=== PATIENT | male | born 2000 | race Caucasian/White ===

== ENCOUNTER 2018-11-12 14:58 | Emergency (ER) | payer SELFPAY ==
[2018-11-12] MEDS ORDERED: IPRATROPIUM/ALBUTEROL 3 ML VIAL NEB ONE ×2 (15:18→15:31)
[2018-11-12] MEDS ORDERED: SODIUM CHLORIDE 0.9% (FLUSH) 10 ML SYG IV PRN (15:19)
[2018-11-12] MEDS ORDERED: MAGNESIUM SULFATE PREMIX 2GM 2 GM in PREMIX BAG 1 BAG IVPB ONE (15:20)
[2018-11-12] MEDS ORDERED: methylPREDNISolone SODIUM SUC 125 MG/2 ML VIAL IV ONE (15:20)
[2018-11-12] MEDS ORDERED: MAGNESIUM SULFATE PREMIX 2GM 50 ML IVPB ONE (15:24)
--- NOTE | 2018-11-12 15:43 | ED.PDOC ---
History of Present Illness - General Chief Complaint: Respiratory Problem Stated Complaint: cough,shortness of breath Time Seen by Provider: 11/12/18 15:05 Source: patient Exam Limitations: no limitations - History of Present Illness Initial Comments: PT PRESENTS WITH COMPLAINT OF SOB X 1 DAY. PT REPORTS A HISTORY OF ASTHMA AND STATES HE HAD A BREATHING TREATMENT AT HOME WITHOUT RELIEF OF SYMPTOMS. PT DENIES FEVER, CHILLS, COUGH. Timing/Duration: 7-24 hours Severity: moderate Activities at Onset: none Possible Cause: chronic episodes Improving Factors: immobilization, medication Worsening Factors: movement Associated Symptoms: fever Allergies/Adverse Reactions: Allergies NO KNOWN ALLERGY Allergy (Verified 03/12/13 09:14) Home Medications: Ambulatory Orders Albuterol Sulfate 1 amp INH Q4H PRN 12/04/12 Fluticasone/Salmeterol 100/50 [Advair 100/50 Diskus] 1 puff INH BID 12/04/12 Levalbuterol Inhaler [Xopenex Hfa 45 Mcg] 1 puff INH PRN PRN 12/04/12 Montelukast Sodium [Singulair] 5 mg PO DAILY 12/04/12 Cefdinir [Omnicef] 300 mg PO BID #0 cap 12/06/12 predniSONE 40 mg PO DAILY #0 tab 12/06/12 Past Medical History (General) - Patient Medical History Hx Seizures: No Hx Stroke: No Hx Asthma: Yes Hx of COPD: No Hx Cardiac Disorders: No Hx Congestive Heart Failure: No Hx Pacemaker: No Hx Hypertension: No Hx Diabetes: No Hx MRSA: No Surgical History: no surgical history - Vaccination History Hx Tetanus, Diphtheria Vaccination: No Hx Influenza Vaccination: No - Social History Hx Tobacco Use: No Hx Alcohol Use: No Hx Substance Use: No Hx Physical Abuse: No Hx Emotional Abuse: No Family Medical History - Family History Mother Living Status: Still Living Progress - Progress Progress: 11/12/18 16:42 PT CONTINUES TO HAVE WHEEZING WITH SPO2 OF 92-93 WHILE ON CONTINUOUS NEB AFTER RECIEVING DUONEB X 2 IV SOLU MEDROL, IV MAG SULFATE. DECISION MADE TO TRANSFER PATIENT TO A HIGHER LEVEL FACILITY BASED ON ACUITY OF DISEASE AND LACK OF ICU CARE AT THIS FACILITY. - Results/Orders Results/Orders: Laboratory Tests 11/12/18 11/12/18 15:34 15:34 WBC 9.5 RBC 5.40 Hgb 16.5 Hct 50.2 MCV 93.0 MCH 30.6 MCHC 32.9 L RDW 13.3 Plt Count 245 MPV 9.1 Absolute Neuts (auto) 6.30 Absolute Lymphs (auto) 1.70 Absolute Monos (auto) 0.70 Absolute Eos (auto) 0.70 H Absolute Basos (auto) 0.10 Neutrophils % 66.8 Lymphocytes % 17.4 L Monocytes % 7.7 Eosinophils % 7.1 H Basophils % 1.0 Sodium 139 Potassium 3.3 L Chloride 104 Carbon Dioxide 25 Anion Gap 13.3 BUN 6 L Creatinine 0.89 BUN/Creatinine Ratio 6.7 L Random Glucose 93 Serum Osmolality 274.8 L Calcium 9.4 Total Bilirubin 1.0 AST 21 ALT 21 Alkaline Phosphatase 100 Serum Total Protein 8.6 H Albumin 4.4 Globulin 4.2 H Albumin/Globulin Ratio 1.0 L - EKG/XRAY/CT XRAY: chest - NO ACTIVE DISEASE, PER RAD Departure - Departure Clinical Impression: Hypoxemia, Asthma with status asthmaticus Time of Disposition: 16:46 Disposition: Transfer to Hospital Condition: Fair Departure Forms: ED Discharge - Pt. Copy, Patient Portal Self Enrollment Home Medications: Ambulatory Orders Albuterol Sulfate 1 amp INH Q4H PRN 12/04/12 Fluticasone/Salmeterol 100/50 [Advair 100/50 Diskus] 1 puff INH BID 12/04/12 Levalbuterol Inhaler [Xopenex Hfa 45 Mcg] 1 puff INH PRN PRN 12/04/12 Montelukast Sodium [Singulair] 5 mg PO DAILY 12/04/12 Cefdinir [Omnicef] 300 mg PO BID #0 cap 12/06/12 predniSONE 40 mg PO DAILY #0 tab 12/06/12 Critical Care Note - Critical Care Note Total Time (mins): 48 Transfer to Outside Facility - Transfer Information Accepting Provider:: DR. OLMSTEAD Accepting Facility: [facility] Reason for Transfer: specialized care not available
[2018-11-12] MEDS ORDERED: SODIUM CHL 0.9% 50ML VIAL 3 ML, ALBUTEROL SULFATE NEBS 15 MG NEB ONE ×2 (15:46)
[2018-11-12] MEDS ORDERED: ALBUTEROL SULFATE 2.5 MG/3 ML VIAL NEB ONE (15:48)
[2018-11-12] MEDS ORDERED: SODIUM CHLORIDE 0.9% 50 ML VIAL ONE (15:48)
--- NOTE | 2018-11-12 16:04 | RAD ---
EXAM DESCRIPTION: Chest,1 View CLINICAL HISTORY: SOB, HYPOXIA COMPARISON: March 11, 2013 FINDINGS: Cardiac silhouette is within normal limits. There is no focal parenchymal or pleural disease. There is no acute osseous process visualized. IMPRESSION: No evidence of acute cardiopulmonary disease. Electronically signed by: Taran Cruz MD 11/12/2018 4:03 PM [facility]
[2018-11-12 16:07] VITALS: O2SAT 92
[2018-11-12 17:22] VITALS: BP 123/68; TEMP 97.4
== END 2018-11-12 17:22 | disposition short-term general hospital (02) ==
LOC: ER 14:58
DX: J45.902 Unspecified asthma with status asthmaticus (principal); R09.02 Hypoxemia; Z79.899 Other long term (current) drug therapy
CPT/HCPCS: 36415; 36600; 71045; 80053; 82803; 82805; 85025; 94640; 94644; 94760; A4216; J2930; J3475; J7611; J7620

== ENCOUNTER → 2019-08-21 | Emergency (ER) | payer SELFPAY | END | disposition left against medical advice (07) | LOC: ER 18:28 | DX: R05 Cough (principal); Z53.21 Procedure and treatment not carried out due to patient leaving prior to being seen by health care provider ==

== ENCOUNTER 2019-08-22 10:32 | Emergency (ER) | payer SELFPAY ==
[2019-08-22] MEDS ORDERED: predniSONE 20 MG TAB PO ONE (10:44)
[2019-08-22] MEDS ORDERED: IPRATROPIUM/ALBUTEROL 3 ML VIAL NEB ONE (10:44)
[2019-08-22] MEDS ORDERED: MONTELUKAST 10 MG TAB PO ONE (10:44)
[2019-08-22 10:45] VITALS: TEMP 96.7
--- NOTE | 2019-08-22 10:47 | ED.PDOC ---
History of Present Illness - General Chief Complaint: Respiratory Problem Stated Complaint: ran out of asthma medications Time Seen by Provider: 08/22/19 10:41 Source: patient Exam Limitations: no limitations - History of Present Illness Initial Comments: the patient is a 19-year-old male presenting to emergency room secondary to running out of his asthma medications. His oxygen levels are somewhat low down around 88% on room air. no fever. He ran out of his Xopenex and Advair. He has been flaring for the last several days. No fever or sore throat. Timing/Duration: unsure Severity: moderate Improving Factors: medication Worsening Factors: nothing Associated Symptoms: shortness of breath Allergies/Adverse Reactions: Allergies NO KNOWN ALLERGY Allergy (Verified 03/12/13 09:14) Home Medications: Ambulatory Orders Albuterol Sulfate 1 amp INH Q4H PRN 12/04/12 Fluticasone/Salmeterol 100/50 [Advair 100/50 Diskus] 1 puff INH BID 12/04/12 Levalbuterol Inhaler [Xopenex Hfa 45 Mcg] 1 puff INH PRN PRN 12/04/12 Montelukast Sodium [Singulair] 5 mg PO DAILY 12/04/12 Cefdinir [Omnicef] 300 mg PO BID #0 cap 12/06/12 predniSONE 40 mg PO DAILY #0 tab 12/06/12 Fluticasone/Salmeterol 250/50 [Advair Diskus] 1 puff INH BID #1 inh 08/22/19 Ipratropium/Albuterol [Duoneb] 3 ml INH Q4HR PRN #50 vial 08/22/19 Montelukast [Singulair] 10 mg PO DAILY #30 tab 08/22/19 predniSONE [Prednisone] 20 mg PO DAILY #3 tab 08/22/19 Review of Systems - Review of Systems Constitutional: States: no symptoms reported EENTM: States: no symptoms reported Respiratory: States: see HPI Cardiology: States: no symptoms reported Gastrointestinal/Abdominal: States: no symptoms reported Genitourinary: States: no symptoms reported Musculoskeletal: States: no symptoms reported Skin: States: no symptoms reported Neurological: States: no symptoms reported Endocrine: States: no symptoms reported All other Systems: No Change from Baseline Past Medical History (General) - Patient Medical History Hx Seizures: No Hx Stroke: No Hx Asthma: Yes Hx of COPD: No Hx Cardiac Disorders: No Hx Congestive Heart Failure: No Hx Pacemaker: No Hx Hypertension: No Hx Diabetes: No Hx MRSA: No Surgical History: no surgical history - Vaccination History Hx Tetanus, Diphtheria Vaccination: No Hx Influenza Vaccination: No - Social History Hx Tobacco Use: No Hx Alcohol Use: No Hx Substance Use: No Hx Physical Abuse: No Hx Emotional Abuse: No Family Medical History - Family History Mother Living Status: Still Living Physical Exam - Physical Exam General Appearance: Alert, Comfortable, No apparent distress Eye Exam: bilateral normal Ears, Nose, Throat: hearing grossly normal, normal ENT inspection Neck: full range of motion, supple Respiratory: decreased breath sounds, accessory muscle use, wheezing Cardiovascular/Chest: normal peripheral pulses, regular rate, rhythm, no edema Peripheral Pulses: radial,right: 2+, radial,left: 2+ Gastrointestinal/Abdominal: non tender, soft Rectal Exam: deferred Back Exam: no CVA tenderness, no vertebral tenderness Extremity: normal range of motion, non-tender, normal inspection, no pedal edema, normal capillary refill Neurologic: varying exceptionalities teacher II-XII nml as tested, alert, normal mood/affect, oriented x 3 Skin Exam: normal color Comments: Vital Signs - 24 hr 08/22/19 10:42 Temperature 96.7 F L Pulse Rate [ 88 Left Brachial] Respiratory 20 Rate Blood Pressure 114/70 [Left Arm] O2 Sat by Pulse 99 Oximetry Progress - Progress Progress: 08/22/19 10:47 the patient is a 19-year-old male presents to emergency room with asthma exacerbation. He received 2 breathing treatments here along with the dose of p rednisone and Singulair. He is going to be written for DuoNeb's for his nebulizer machine. He'll also be written for Singulair to take daily. He is going to be written for prednisone for the next 3 days. He'll also be written for an Advair inhaler as he has used this before. ER warnings were given for any significant worsening. Follow up with primary care doctor next week. [id number] [id number] Departure - Departure Clinical Impression: Asthma with exacerbation Qualifiers: Asthma severity: moderate Asthma persistence: persistent Qualified Code(s): J45.41 - Moderate persistent asthma with (acute) exacerbation Disposition: Discharge to Home or Self Care Condition: Fair Departure Forms: ED Discharge - Pt. Copy, Patient Portal Self Enrollment Instructions: DI for Asthma -- Adult Diet: regular diet Activity: increase activity as tolerated Prescriptions: Ipratropium/Albuterol [Duoneb] 3 ml INH Q4HR PRN #50 vial PRN Reason: Shortness Of Breath Fluticasone/Salmeterol 250/50 [Advair Diskus] 1 puff INH BID #1 inh Montelukast [Singulair] 10 mg PO DAILY #30 tab predniSONE [Prednisone] 20 mg PO DAILY #3 tab Home Medications: Ambulatory Orders Albuterol Sulfate 1 amp INH Q4H PRN 12/04/12 Fluticasone/Salmeterol 100/50 [Advair 100/50 Diskus] 1 puff INH BID 12/04/12 Levalbuterol Inhaler [Xopenex Hfa 45 Mcg] 1 puff INH PRN PRN 12/04/12 Montelukast Sodium [Singulair] 5 mg PO DAILY 12/04/12 Cefdinir [Omnicef] 300 mg PO BID #0 cap 12/06/12 predniSONE 40 mg PO DAILY #0 tab 12/06/12 Fluticasone/Salmeterol 250/50 [Advair Diskus] 1 puff INH BID #1 inh 08/22/19 Ipratropium/Albuterol [Duoneb] 3 ml INH Q4HR PRN #50 vial 08/22/19 Montelukast [Singulair] 10 mg PO DAILY #30 tab 08/22/19 predniSONE [Prednisone] 20 mg PO DAILY #3 tab 08/22/19 Additional Instructions: the patient is a 19-year-old male presents to emergency room with asthma exacerbation. He received 2 breathing treatments here along with the dose of prednisone and Singulair. He is going to be written for DuoNeb's for his nebulizer machine. He'll also be written for Singulair to take daily. He is going to be written for prednisone for the next 3 days. He'll also be written for an Advair inhaler as he has used this before. ER warnings were given for any significant worsening. Follow up with primary care doctor next week.
[2019-08-22 11:34] VITALS: O2SAT 98
[2019-08-22 11:42] VITALS: BP 131/72
== END 2019-08-22 11:35 | disposition home or self-care (01) ==
LOC: ER 10:32
DX: J45.41 Moderate persistent asthma with (acute) exacerbation (principal); Z79.899 Other long term (current) drug therapy
CPT/HCPCS: 94640; J7512; J7620

== ENCOUNTER 2019-08-31 23:29 | Emergency (ER) | payer SELFPAY ==
[2019-08-31] MEDS ORDERED: ALBUTEROL SULFATE 2.5 MG/3 ML VIAL NEB ONE ×3 (23:40→23:58)
[2019-08-31] MEDS ORDERED: methylPREDNISolone SODIUM SUC 125 MG/2 ML VIAL ONE (23:50)
[2019-08-31] MEDS ORDERED: methylPREDNISolone SODIUM SUC 125 MG/2 ML VIAL IV ONE (23:57)
--- NOTE | 2019-08-31 23:58 | ED.PDOC ---
History of Present Illness - General Chief Complaint: Respiratory Problem Stated Complaint: hard to breathe, need inhaler Time Seen by Provider: 08/31/19 23:46 - History of Present Illness Initial Comments: this is a 19-year-old young man who presents to the emergency department with complaints of shortness of breath. He states that he ran out of his inhaler today and had an abrupt onset of shortness of breath this evening. He denies any recent cough or congestion. He states that he was here approximately one week ago and received all of his prescriptions but was I'm unable to get them due to financial difficulties. He denies any fever or chills or recent cough or congestion. He denies smoking as well. Allergies/Adverse Reactions: Allergies NO KNOWN ALLERGY Allergy (Verified 08/31/19 23:34) Home Medications: Ambulatory Orders Albuterol Sulfate 1 amp INH Q4H PRN 12/04/12 Fluticasone/Salmeterol 100/50 [Advair 100/50 Diskus] 1 puff INH BID 12/04/12 Levalbuterol Inhaler [Xopenex Hfa 45 Mcg] 1 puff INH PRN PRN 12/04/12 Montelukast Sodium [Singulair] 5 mg PO DAILY 12/04/12 Cefdinir [Omnicef] 300 mg PO BID #0 cap 12/06/12 predniSONE 40 mg PO DAILY #0 tab 12/06/12 Fluticasone/Salmeterol 250/50 [Advair Diskus] 1 puff INH BID #1 inh 08/22/19 Ipratropium/Albuterol [Duoneb] 3 ml INH Q4HR PRN #50 vial 08/22/19 Montelukast [Singulair] 10 mg PO DAILY #30 tab 08/22/19 predniSONE [Prednisone] 20 mg PO DAILY #3 tab 08/22/19 Albuterol Sulfate [Albuterol Sulfate Hfa] 108 mcg INH Q4HR #1 aer 09/01/19 predniSONE 40 mg PO Q24HR #10 tab 09/01/19 Review of Systems - Review of Systems Constitutional: States: no symptoms reported EENTM: States: no symptoms reported Respiratory: States: short of breath, wheezing Cardiology: States: no symptoms reported Gastrointestinal/Abdominal: States: no symptoms reported Musculoskeletal: States: no symptoms reported Skin: States: no symptoms reported Neurological: States: no symptoms reported Endocrine: States: no symptoms reported Hematologic/Lymphatic: States: no symptoms reported All other Systems: Reviewed and Negative Past Medical History (General) - Patient Medical History Hx Seizures: No Hx Stroke: No Hx Dementia: No Hx Asthma: Yes Hx of COPD: No Hx Cardiac Disorders: No Hx Congestive Heart Failure: No Hx Pacemaker: No Hx Hypertension: No Hx Thyroid Disease: No Hx Diabetes: No Hx Gastroesophageal Reflux: No Hx Renal Disease: No Hx Cancer: No Hx of HIV: No Hx Hepatitis C: No Hx MRSA: No Surgical History: other - Vaccination History Hx Tetanus, Diphtheria Vaccination: Yes Hx Influenza Vaccination: No Hx Pneumococcal Vaccination: No Immunizations Up to Date: Yes - Social History Hx Tobacco Use: No Hx Chewing Tobacco Use: No Hx Alcohol Use: No Hx Substance Use: No Hx Substance Use Treatment: No Hx Depression: No Feels Threatened In Home Enviroment: No Feels Threatened In a Relationship: No Hx Physical Abuse: No Hx Emotional Abuse: No Hx Suspected Abuse: No - Activities of Daily Living Hospice Agency (if applicable):: None - Female History Patient is a Female of Child Bearing Age (10 -59 yrs old): No - Triage Comment ED Triage Comment: pt states he is out of inhaler medication, and does not have PCP, Family Medical History - Family History Mother Living Status: Still Living Physical Exam - Physical Exam General Appearance: Alert, Other - mild distress is noted secondary to shortness of breath Eyes, Ears, Nose, Throat Exam: PERRL/EOMI, normal ENT inspection, TMs normal, pharynx normal Neck: non-tender, full range of motion, supple Respiratory: respiratory distress, decreased breath sounds, accessory muscle use, wheezing, other - worse and expiration. Cardiovascular/Chest: normal peripheral pulses, regular rate, rhythm, no edema, no gallop, no JVD, no murmur Peripheral Pulses: radial,right: 2+, radial,left: 2+ Gastrointestinal/Abdominal: normal bowel sounds, non tender, soft Rectal Exam: deferred Extremity: normal range of motion, no pedal edema Neurologic: no motor/sensory deficits, alert, normal mood/affect, oriented x 3 Skin Exam: normal color, warm/dry Lymphatic: no adenopathy Progress - Progress Progress: 09/01/19 00:00 MDM: Patient is a 19-year-old gentleman who has significant asthmatic symptoms and is on multiple medications. He is unable to afford them currently. He has run out of his rescue inhaler. Seen 1 week ago for similar issues. Comes in now with a 91% O2 sat needing bronchodilators and steroids. No evidence of pneumonia, fever, chills or other systemic symptoms. 09/01/19 00:20 after 2 nebulized treatments and IV steroids patient is doing much better as O2 saturations are 95% on room air now..We discussed Good Rx card and gave him one as well. We will give him albuterol which would be cheaper than DuoNeb. Will go ahead and keep him on prednisone for a few more days. He did not take it last time. He works in [employer] and does wear a mask whenever he moves. This is obviously hard on his asthma. Departure - Departure Clinical Impression: Acute asthma Asthma with exacerbation Qualifiers: Asthma severity: moderate Asthma persistence: persistent Qualified Code(s): J45.41 - Moderate persistent asthma with (acute) exacerbation Time of Disposition: 00:23 Disposition: Discharge to Home or Self Care Condition: Good Departure Forms: ED Discharge - Pt. Copy, Patient Portal Self Enrollment Instructions: DI for Asthma -- Adult Referrals: GAMAL DIAS MD REF [Referring] - 1-2 Weeks Prescriptions: Albuterol Sulfate [Albuterol Sulfate Hfa] 108 mcg INH Q4HR #1 aer predniSONE 40 mg PO Q24HR #10 tab Home Medications: Ambulatory Orders Albuterol Sulfate 1 amp INH Q4H PRN 12/04/12 Fluticasone/Salmeterol 100/50 [Advair 100/50 Diskus] 1 puff INH BID 12/04/12 Levalbuterol Inhaler [Xopenex Hfa 45 Mcg] 1 puff INH PRN PRN 12/04/12 Montelukast Sodium [Singulair] 5 mg PO DAILY 12/04/12 Cefdinir [Omnicef] 300 mg PO BID #0 cap 12/06/12 predniSONE 40 mg PO DAILY #0 tab 12/06/12 Fluticasone/Salmeterol 250/50 [Advair Diskus] 1 puff INH BID #1 inh 08/22/19 Ipratropium/Albuterol [Duoneb] 3 ml INH Q4HR PRN #50 vial 08/22/19 Montelukast [Singulair] 10 mg PO DAILY #30 tab 08/22/19 predniSONE [Prednisone] 20 mg PO DAILY #3 tab 08/22/19 Albuterol Sulfate [Albuterol Sulfate Hfa] 108 mcg INH Q4HR #1 aer 09/01/19 predniSONE 40 mg PO Q24HR #10 tab 09/01/19 Additional Instructions: obtain medications as prescribed and improve compliance. Recommend mowing with a mask. Follow-up with PCP at regular visits to avoid exacerbations. Return to ED if needed.
[2019-09-01] MEDS ORDERED: ALBUTEROL SULFATE 2.5 MG/3 ML VIAL NEB ONE (00:54)
[2019-09-01 01:55] VITALS: BP 122/89; TEMP 98.3; O2SAT 93
== END 2019-09-01 01:45 | disposition home or self-care (01) ==
LOC: ER 23:29
DX: J45.41 Moderate persistent asthma with (acute) exacerbation (principal); Z79.899 Other long term (current) drug therapy
CPT/HCPCS: 94640; J2930; J7611

== ENCOUNTER 2019-09-13 09:26 | Inpatient (IN) | payer OTHER ==
[2019-09-13] MEDS: IPRATROPIUM/ALBUTEROL 3 ML VIAL NEB ONE ×2 (09:37→10:00)
[2019-09-13] MEDS ORDERED: MAGNESIUM SULFATE PREMIX 2GM 2 GM in PREMIX BAG 1 BAG IVPB ONE (09:38)
[2019-09-13] MEDS ORDERED: MAGNESIUM SULFATE PREMIX 2GM 50 ML IVPB ONE (09:48)
--- NOTE | 2019-09-13 09:55 | ED.PDOC ---
History of Present Illness - General Chief Complaint: Respiratory Problem Stated Complaint: Wheezing, difficulty breathing Time Seen by Provider: 09/13/19 09:29 Source: patient - History of Present Illness Initial Comments: 19 y/o Male presents to the emergency department via EMS complaining of shortness of breath and wheezing onset 1 day ago. On EMS arrival the patient's room air oxygen saturations were 89% and he was given a DuoNeb treatment, IV Solu-Medrol and subcutaneous terbutaline. The patient has a history of asthma and had recently been on steroids which he finished yesterday. Since he finished the steroids he has noticed increased work of breathing and wheezing, he has tried his home DuoNebs, albuterol and inhaled steroids without significant improvement in his symptoms. He denies any cough, congestion or fever. Symptoms are currently moderate in severity and it progressively worsened over time. Patient reports that he has been admitted for his asthma in the past but has never been in the ICU and is never required intubation. Allergies/Adverse Reactions: Allergies NO KNOWN ALLERGY Allergy (Verified 08/31/19 23:34) Home Medications: Ambulatory Orders Fluticasone/Salmeterol 250/50 [Advair Diskus] 1 puff INH BID #1 inh 08/22/19 Montelukast [Singulair] 10 mg PO DAILY #30 tab 08/22/19 Albuterol Sulfate [Albuterol Sulfate Hfa] 1 dose NEB Q4H PRN 09/13/19 Review of Systems - Review of Systems Constitutional: Denies: chills, fever EENTM: Denies: nose congestion, throat pain, throat swelling Respiratory: States: short of breath, wheezing. Denies: cough Cardiology: Denies: chest pain, palpitations Gastrointestinal/Abdominal: Denies: abdominal pain, nausea, vomiting Genitourinary: Denies: dysuria, hematuria Skin: Denies: lesions, rash Neurological: Denies: headache, numbness, weakness Past Medical History (General) - Patient Medical History Hx Seizures: No Hx Stroke: No Hx Dementia: No Hx Asthma: Yes Hx of COPD: No Hx Cardiac Disorders: No Hx Congestive Heart Failure: No Hx Pacemaker: No Hx Hypertension: No Hx Thyroid Disease: No Hx Diabetes: No Hx Gastroesophageal Reflux: No Hx Renal Disease: No Hx Cancer: No Hx of HIV: No Hx Hepatitis C: No Hx MRSA: No Surgical History: no surgical history - Vaccination History Hx Tetanus, Diphtheria Vaccination: Yes Hx Influenza Vaccination: No Hx Pneumococcal Vaccination: No - Social History Hx Tobacco Use: No Hx Chewing Tobacco Use: No Hx Alcohol Use: No Hx Substance Use: No Hx Substance Use Treatment: No Hx Depression: No Hx Physical Abuse: No Hx Emotional Abuse: No Hx Suspected Abuse: No Family Medical History - Family History Mother Living Status: Still Living Physical Exam - Physical Exam General Appearance: Obvious distress, Well Developed, Well Nourished Eyes, Ears, Nose, Throat Exam: PERRL/EOMI, pharynx normal Neck: full range of motion, supple, normal inspection Respiratory: respiratory distress, accessory muscle use, wheezing - diffuse inspiratory and expiratory Cardiovascular/Chest: normal peripheral pulses, no murmur, tachycardia Peripheral Pulses: radial,right: 2+, radial,left: 2+, posterior tibialis,right: 2+, posterior tibialis,left: 2+ Gastrointestinal/Abdominal: normal bowel sounds, non tender, soft Extremity: normal range of motion, normal inspection Neurologic: customer engagement representative II-XII nml as tested, alert, normal mood/affect, oriented x 3, other - moves all extremities without focal deficits Progress - Progress Progress: 09/13/19 09:20 AM On arrival from EMS patient is tachypneic with accessory muscle usage and diffuse inspiratory and expiratory wheezes with room air oxygen saturation 90- 91%. He was given a DuoNeb treatments, IV Solu-Medrol 125 and 0.125 of subcutaneous terbutaline by EMS prior to arrival. A hour-long DuoNeb breathing treatment and 2 g of IV magnesium was ordered along with laboratory data and an ABG. 09/13/19 09:45 Old record review: Patient was seen on 08/22/19 for asthma exacerbation his room air saturation was 88% at that time. He improved in the department and was discharged home with a prescription for DuoNeb, Singulair and prednisone. Patient was seen on 08/31/19 for shortness of breath and asthma exacerbation at that time his room air saturations were 91% on arrival. He did not fill his prescriptions from his previous visit due to funding issues. He improved after 2 neb treatments in the emergency department and was discharged home with a prescription for albuterol nebulizer as well as inhaler and another prescription for steroids. He was given a good Rx card to help pay for his prescriptions. 09/13/19 10:30 Patient is breathing significantly better. Respiratory effort is significantly improved although still wheezing on neb treatment. I discussed with the patient lab results and recommended plan for admission for continued frequent breathing treatments and steroids as well as close observation. The patient has voiced understanding and agrees with the plan. 09/13/19 10:47 Spoke with Jennyfer Michelle with the hospitalist service, discussed lab, imaging results and exam findings. Agrees with plan for admission. - Results/Orders Results/Orders: 09/13/19 09:38 Magnesium Sulfate Premix 2Gm 2 gm Premix Bag 1 bag IVPB ONCE 09/13/19 09:40 ABG [Arterial Blood Gas] Stat 09/13/19 09:42 IV Care:Saline Lock per Protoc QSHIFT Telemetry PRN 09/13/19 09:43 Oxygen Delivery Assessment: QSHIFT Pulse Oximetry Assessment DAILY 09/13/19 10:13 BOLUS Sodium Chloride 0.9% 1000ML [Ns 1000 ml] 1,000 ml IVS ONCE 09/14/19 09:00 Oxygen Daily Pulse Ox Daily Laboratory Results - last 24 hr 09/13/19 09/13/19 09/13/19 09:11 09:11 09:11 WBC 13.8 H RBC 5.54 Hgb 17.4 Hct 52.7 H MCV 95.2 H MCH 31.4 H MCHC 33.0 RDW 13.4 Plt Count 296 MPV 9.4 Absolute Neuts (auto) 9.30 H Absolute Lymphs (auto) 2.40 Absolute Monos (auto) 1.20 H Absolute Eos (auto) 0.80 H Absolute Basos (auto) 0.10 Neutrophils % 67.5 Lymphocytes % 17.4 L Monocytes % 8.5 Eosinophils % 5.8 H Basophils % 0.8 D-Dimer, Quantitative 0.25 Sodium 140 Potassium 3.7 Chloride 101 Carbon Dioxide 25 Anion Gap 17.7 BUN 17 Creatinine 0.93 BUN/Creatinine Ratio 18.3 Random Glucose 100 Serum Osmolality 281.0 Calcium 9.8 Total Bilirubin 1.8 H AST 25 ALT 24 Alkaline Phosphatase 80 Serum Total Protein 8.9 H Albumin 4.7 Globulin 4.2 H Albumin/Globulin Ratio 1.1 ABG interpretation: Findings consistent with hypoxia with PO2 of 58 and O2 saturation is 91% on RA. PH is normal. PCO2 is normal at 41. Bicarbonate is 24.5. CXR per my read: Hyperinflation without acute cardiopulmonary process. No significant change from previous on 11/12/18. Departure - Departure Clinical Impression: Hypoxia Asthma with acute exacerbation Qualifiers: Asthma severity: moderate Asthma persistence: persistent Qualified Code(s): J45.41 - Moderate persistent asthma with (acute) exacerbation Time of Disposition: 10:50 Condition: Fair Home Medications: Ambulatory Orders Fluticasone/Salmeterol 250/50 [Advair Diskus] 1 puff INH BID #1 inh 08/22/19 Montelukast [Singulair] 10 mg PO DAILY #30 tab 08/22/19 Albuterol Sulfate [Albuterol Sulfate Hfa] 1 dose NEB Q4H PRN 09/13/19 Comments: Elda Alcaraz DO Emergency Medicine MediSer#[id number] Decision To Admit - Decistion To Admit Decision to Admit Reason: Admit from ER Decision to Admit Date: 09/13/19 Decision to Admit Time: 10:30
[2019-09-13] MEDS ORDERED: SODIUM CHLORIDE 0.9% 1000ML 1,000 ML IVS ONE (10:13)
--- NOTE | 2019-09-13 10:55 | RAD ---
EXAM DESCRIPTION: Chest,1 View x-ray CLINICAL HISTORY: 19 years Male, SOB COMPARISON: Previous study November 12, 2018 TECHNIQUE: AP portable chest. FINDINGS: Heart size is normal with normal pulmonary vascularity. No consolidating infiltrate. Lungs appear hyperexpanded. No pulmonary mass or worrisome nodule. No pneumothorax or pleural effusion. Bones are unremarkable. IMPRESSION: No consolidating infiltrate. Electronically signed by: Robin Flores MD 09/13/2019 10:54 AM [facility]
--- NOTE | 2019-09-13 11:20 | HP ---
SUPERVISING PHYSICIAN: Van Mcdonough M.D. CHIEF COMPLAINT: Shortness of breath and wheezing. HISTORY OF PRESENT ILLNESS: This is a 19 year-old male patient who came to the Emergency Room via EMS complaining of shortness of breath and wheezing that has been going on for about 2 weeks, but his symptoms worsened last night to the point that he was so short of breath he "felt I was going to ." In the Emergency Room, his oxygen saturations were in the upper 80s and he was tachypneic. He had been in the Emergency Room 2 to 3 times over the last week and a half with the same symptoms, although last night his symptoms were actually much worse than previously. In the Emergency Room, his initial vital signs were temperature 98, heart rate 128, blood pressure 142/114. Shortly thereafter it came down to 109/80. His respiratory rate was 32 and O2 saturation was 88% on room air. He was given a DuoNeb and then it was repeated, and it was a continuous nebulizer for 1 hour. He also received 2 grams of magnesium. Laboratory studies [place] [id number] with hemoglobin 17.4 and hematocrit 52.7. D-dimer was negative. Blood gas showed a pO2 of 58 with pCO2 of 41, pH was 7.39 and O2 saturation was 90.6. Chemistry was unremarkable with the exception of his bilirubin was slightly elevated at 1.8. Chest x-ray showed no consolidating infiltrate. Initially his air sounds were very diminished with inspiratory and expiratory wheezing throughout. He actually had retractions as well as abdominal breathing. After his nebulizer treatment his breath sounds did improve. I was called for admission to the hospital. PAST MEDICAL HISTORY: 1. Asthma. 2. Seasonal allergies. PAST SURGICAL HISTORY: None. OUTPATIENT MEDICATIONS: None, although he did say he has had a rescue inhaler in the past and was given Advair at his last emergency room visit. ALLERGIES: NO KNOWN DRUG ALLERGIES. SOCIAL HISTORY: He lives with his girlfriend's parents. He has recently become unemployed due to his missing work because of the current symptoms. The patient denies tobacco, illicit drugs or ETOH use, but he has been vaping for approximately 1 year. REVIEW OF SYSTEMS: GENERAL: Negative for fever, chills or weight changes. HEENT: Negative for ear pain, vision changes, sore throat or sinus symptoms. RESPIRATORY: Positive for shortness of breath and wheezing. Negative for cough. CARDIAC: Negative for chest pain, palpitations or tachycardia. GASTROINTESTINAL: Negative for nausea, vomiting, diarrhea or constipation. GENITOURINARY: Negative for dysuria, hematuria or polyuria. SKIN: Negative for lesions or rashes. NEUROLOGIC: Negative for headaches, weakness or seizures. PHYSICAL EXAMINATION: VITAL SIGNS: Temperature 98.3, heart rate 121, blood pressure 117/79, respiratory rate 25 to 28, O2 saturation is 96% on 2 liters nasal cannula. GENERAL: This is a 19 year-old male patient sitting up in his hospital bed. He is in respiratory distress. HEENT: Normocephalic and atraumatic. Pupils are equal and reactive. Oropharynx is clear. NECK: Supple without mass. RESPIRATORY: Inspiratory and expiratory wheezing throughout, very diminished breath sounds. He is tachypneic and he is retracting as well as has abdominal respirations with increased respiratory effort. GASTROINTESTINAL: Abdomen is soft, nondistended, non-tender. Bowel sounds are positive. SKIN: Warm and dry. No lesions or rashes noted. EXTREMITIES: No clubbing, cyanosis or edema. NEUROLOGIC: He is awake, alert and oriented times three. Cranial nerves II-XII are grossly intact. LABORATORY: Labs and films are as per the History of Present Illness. ASSESSMENT: 1. Acute hypoxic respiratory failure secondary to exacerbation of his asthma. PLAN: I have admitted the patient to the hospital. He will be on the rn or lpn as well as continuous Atrovent breathing treatments. I spoke with Dr. Cervantes, veneer slicing machine operator in [place]. He recommended the Atrovent as well as scheduled IV steroids overnight. He said we could also use a short acting beta agonist, but he would most likely benefit more from the ipratropium. I have done extensive asthma teaching as well as we discussed his vaping cessation. I have ordered lab for in the morning. Will continue to monitor closely and follow as needed. [facility][id number] [facility]
[2019-09-13] MEDS ORDERED: SODIUM CHL 0.9% 50ML VIAL 3 ML, ALBUTEROL SULFATE NEBS 15 MG NEB ONE ×2 (11:49)
[2019-09-13] MEDS ORDERED: methylPREDNISolone SODIUM SUC 125 MG/2 ML VIAL ONE (11:53)
[2019-09-13] MEDS ORDERED: SODIUM CHL 0.9% 50ML VIAL 3 ML, ALBUTEROL SULFATE NEBS 15 MG NEB PRN ×2 (11:54)
[2019-09-13] MEDS ORDERED: ALBUTEROL SULFATE 2.5 MG/3 ML VIAL NEB ONE ×2 (11:57→12:00)
[2019-09-13] MEDS ORDERED: methylPREDNISolone SODIUM SUC 125 MG/2 ML VIAL IV SCH (12:00)
[2019-09-13] MEDS ORDERED: LEVALBUTEROL NEBS 1.25 MG/3 ML VIAL NEB ONE (14:40)
[2019-09-13] MEDS ORDERED: IPRATROPIUM BROMIDE NEBS 0.5 MG/2.5 ML VIAL NEB ONE (14:40)
[2019-09-13] MEDS ORDERED: MORPHINE SULFATE INJ 10 MG/ML VIAL IV ONE (14:50)
[2019-09-13] MEDS ORDERED: SODIUM CHLORIDE 0.9% 1000ML 1,000 ML ONE (14:53)
[2019-09-13] MEDS: LEVALBUTEROL NEBS 1.25 MG/3 ML VIAL NEB SCH ×2 (15:00→23:25)
[2019-09-13] MEDS: SODIUM CHLORIDE 0.9% 1000ML 1,000 ML IVS PRN (15:03)
[2019-09-13] MEDS ORDERED: SODIUM CHLORIDE 0.9% (FLUSH) 10 ML SYG IV PRN (15:17)
[2019-09-13] MEDS ORDERED: MORPHINE SULFATE INJ 10 MG/ML VIAL IV PRN (15:17)
[2019-09-13] MEDS ORDERED: ALBUTEROL SULFATE NEBS 15 MG, IPRATROPIUM BROMIDE NEBS 0.5 MG NEB PRN ×2 (15:25)
[2019-09-13] MEDS: IPRATROPIUM BROMIDE NEBS 0.5 MG/2.5 ML VIAL NEB SCH ×3 (15:35→23:53)
[2019-09-13] MEDS: IV SET AND CAP CHANGE INJ INJ SCH (15:46)
[2019-09-13] MEDS: methylPREDNISolone SODIUM SUC 40 MG/ML VIAL IV SCH ×2 (17:48→23:56)
[2019-09-13] MEDS: SODIUM CHLORIDE 0.9% (FLUSH) 10 ML SYG IV SCH (20:37)
[2019-09-13] MEDS ORDERED: IPRATROPIUM BROMIDE NEBS 0.5 MG/2.5 ML VIAL NEB SCH (22:00)
[2019-09-14] MEDS: IPRATROPIUM BROMIDE NEBS 0.5 MG/2.5 ML VIAL NEB SCH ×6 (04:28→23:38)
[2019-09-14] MEDS: methylPREDNISolone SODIUM SUC 40 MG/ML VIAL IV SCH ×4 (06:05→23:53)
[2019-09-14] MEDS ORDERED: PANTOPRAZOLE SODIUM IV 40 MG VIAL IV SCH (06:30)
--- NOTE | 2019-09-14 07:06 | RAD ---
EXAM DESCRIPTION: Chest,2 Views CLINICAL HISTORY:19 years Male, asthma exac Comparison: September 13, 2019 FINDINGS: No focal lung consolidation. No pleural effusion. No pneumothorax. Cardiac and mediastinal silhouette is unremarkable. No acute osseous abnormality. Soft tissues are unremarkable. IMPRESSION: No acute findings. No focal lung consolidation. Electronically signed by: Shaka Salas MD 09/14/2019 7:05 AM [facility]
[2019-09-14] MEDS: LEVALBUTEROL NEBS 1.25 MG/3 ML VIAL NEB SCH ×3 (07:31→23:39)
[2019-09-14] MEDS: SODIUM CHLORIDE 0.9% (FLUSH) 10 ML SYG IV SCH ×2 (12:35→20:40)
--- NOTE | 2019-09-14 13:09 | PN ---
SUPERVISING PHYSICIAN: Van Mcdonough MD DATE: 09/14/19 SUBJECTIVE: The patient is sitting up in bed. He has his oxygen via nasal cannula at this time. He is much less short of breath than he was yesterday and actually feels quite a bit better although he feels very weak. He has no complaints of chest pain, nausea or vomiting. OBJECTIVE: VITAL SIGNS: Temperature 98.5. Heart 103 and goes as high as 114. Blood pressure 121/73. Respiratory rate 22. O2 saturation 98% on 5 liters nasal cannula. RESPIRATORY: Expiratory wheezing throughout. There is only an occasional inspiratory wheeze in the bilateral apices which are very mild. He is tachypneic at times although much less short of breath than yesterday. CARDIAC: Regular rate and rhythm. At times, he is slightly tachycardic. GASTROINTESTINAL: Abdomen is soft, nondistended, nontender. Bowel sounds are positive. NEUROLOGIC: Awake, alert and oriented times three. LABORATORY: WBCs have normalized to 8,400 with hemoglobin 15.8, hematocrit 48. Followup blood gas showed pCO2 49, pO2 129, pH 7.34. Chemistry shows sodium 135, potassium 4.4, chloride 99, carbon dioxide 25. Chest x-ray shows no acute findings, no focal lung consolidation. All other labs and films have been reviewed via the EMR. ASSESSMENT: 1. Acute hypoxic respiratory failure secondary to exacerbation of his asthma. 2. Current vape user for approximately one year. 3. Hyperbilirubinemia. PLAN: We will continue present supportive care. I will titrate his Solu-Medrol down and hopefully titrate him off his oxygen. He has been encouraged to get up and ambulate. Hopefully, his symptoms will improve. He has an appointment with Dr. Peña at [facility]. We will continue to do asthma education. He have also encouraged him to stop using a vape. We will continue to monitor the patient closely and follow as needed. #[id number] [facility]
[2019-09-14] MEDS: SODIUM CHLORIDE 0.9% 1000ML 1,000 ML IVS PRN (22:57)
[2019-09-15] MEDS: IPRATROPIUM BROMIDE NEBS 0.5 MG/2.5 ML VIAL NEB SCH ×5 (04:02→20:15)
[2019-09-15] MEDS: PANTOPRAZOLE SODIUM TAB 40 MG PO SCH (06:00)
[2019-09-15] MEDS: methylPREDNISolone SODIUM SUC 40 MG/ML VIAL IV SCH (06:00)
[2019-09-15] MEDS: LEVALBUTEROL NEBS 1.25 MG/3 ML VIAL NEB SCH ×2 (07:40→15:38)
[2019-09-15] MEDS: SODIUM CHLORIDE 0.9% (FLUSH) 10 ML SYG IV SCH ×2 (08:17→20:46)
[2019-09-15] MEDS: IPRATROPIUM/ALBUTEROL 3 ML VIAL NEB PRN (09:56)
[2019-09-15] MEDS: predniSONE 20 MG TAB PO SCH (11:07)
--- NOTE | 2019-09-15 22:17 | PN ---
DATE: 09/15/19 SUPERVISING PHYSICIAN: Van Mcdonough M.D. SUBJECTIVE: The patient is sitting up in his bed. He has his nasal cannula on. He still gets quite short of breath with any exertion. He denies any chest pain, nausea, vomiting, diarrhea or constipation. OBJECTIVE: VITAL SIGNS: Temperature 98.4, heart rate 94, blood pressure 127/75, respiratory rate 18 to 22 breaths per minute, O2 saturation is 93% on 2 liters nasal cannula. RESPIRATORY: Expiratory wheezes throughout all lung trujillo. He is tachypneic at times, especially when he is talking. CARDIAC: Regular rate and rhythm. GASTROINTESTINAL: Abdomen is soft, nondistended, non-tender. Bowel sounds are positive. NEUROLOGIC: He is awake, alert and oriented times three. LABORATORY: WBCs are 11,500 with hemoglobin 14.9, hematocrit 44.6. Electrolytes are basically within normal limits. Bilirubin is down to 1.1. All other labs and films have been reviewed via the EMR. ASSESSMENT: 1. Acute hypoxic respiratory failure secondary to exacerbation of asthma. Current vape user for approximately one year. 2. Hyperbilirubinemia that has improved. PLAN: We will continue present supportive care. At this point, he is improving but he is improving slowly. We will attempt to get him off of his oxygen. I have encouraged him to ambulate in the hallway. He had ambulated without O2 earlier and his oxygen saturations dropped into the upper 70s. We will have to slowly wean him off of his oxygen. I have titrated off his IV steroids and have changed him to p.o. prednisone. Once we can get him weaned off of his oxygen and he stabilizes, he can be discharged home, but until that time we will have to do aggressive pulmonary hygiene and monitor him closely. #[id number] [facility]
[2019-09-16] MEDS: IPRATROPIUM/ALBUTEROL 3 ML VIAL NEB PRN ×2 (00:19→20:10)
[2019-09-16] MEDS: IPRATROPIUM BROMIDE NEBS 0.5 MG/2.5 ML VIAL NEB SCH ×6 (00:20→20:10)
[2019-09-16] MEDS: PANTOPRAZOLE SODIUM TAB 40 MG PO SCH (06:10)
[2019-09-16] MEDS: ALBUTEROL SULFATE 2.5 MG/3 ML VIAL NEB SCH ×4 (07:24→20:10)
[2019-09-16] MEDS: SODIUM CHLORIDE 0.9% (FLUSH) 10 ML SYG IV SCH ×2 (09:14→20:00)
[2019-09-16] MEDS: predniSONE 20 MG TAB PO SCH (09:14)
[2019-09-16] MEDS: IV SET AND CAP CHANGE INJ INJ SCH (20:14)
--- NOTE | 2019-09-16 20:55 | PN ---
DATE: 09/16/19 SUPERVISING PHYSICIAN: Van Mcdonough M.D. SUBJECTIVE: The patient is sitting up in bed. He still complains of shortness of breath and he cannot go without his oxygen. He would be willing to go home on oxygen if necessary. Otherwise denies chest pain, nausea, vomiting, diarrhea or constipation. OBJECTIVE: VITAL SIGNS: Temperature 98.4, heart rate 83, blood pressure 107/73, respiratory rate 16 to 20, O2 saturation 91% on 1 liter nasal cannula. He does drop to the mid 80s at rest on room air. He also drops into the low 80s with ambulation on room air. RESPIRATORY: Diminished breath sounds throughout with a few scattered expiratory wheezes. CARDIAC: Regular rate and rhythm. GASTROINTESTINAL: Abdomen is soft, nondistended, non-tender. Bowel sounds are positive. EXTREMITIES: No clubbing, cyanosis or edema. NEUROLOGIC: He is awake, alert and oriented times three. LABORATORY: WBCs are 12,700. The remainder of his CBC is unremarkable. Sodium 136, potassium 3.6, chloride 98, carbon dioxide 28. Total bilirubin 1.2. All other labs and films have been reviewed via the EMR. ASSESSMENT: 1. Acute hypoxic respiratory failure secondary to exacerbation of asthma. Current vape user for approximately one year. 2. Hyperbilirubinemia that has improved. PLAN: We will continue present supportive care. I will continue to try to wean him off of his oxygen. If he cannot be weaned off his oxygen by tomorrow, it may be beneficial to try to get him home oxygen and a followup with pulmonology. He has an appointment with Dr. Peña on Tuesday at [facility]. His steroids have been changed to p.o. I have continued him on his Atrovent as well as his albuterol breathing treatments. I have encouraged him to ambulate in the hallways. Will continue to monitor closely and follow as needed. [facility][id number] [facility]
[2019-09-17] MEDS: IPRATROPIUM BROMIDE NEBS 0.5 MG/2.5 ML VIAL NEB SCH ×7 (00:05→23:44)
[2019-09-17] MEDS: PANTOPRAZOLE SODIUM TAB 40 MG PO SCH (05:57)
[2019-09-17] MEDS: ALBUTEROL SULFATE 2.5 MG/3 ML VIAL NEB SCH ×4 (08:34→20:51)
[2019-09-17] MEDS: SODIUM CHLORIDE 0.9% (FLUSH) 10 ML SYG IV SCH ×2 (09:57→21:33)
[2019-09-17] MEDS: predniSONE 20 MG TAB PO SCH (09:57)
--- NOTE | 2019-09-17 13:54 | PN ---
SUPERVISING PHYSICIAN: Stalin Bob MD DATE: 09/17/19 SUBJECTIVE: The patient does not really complain of any shortness of breath right now. He does have a nasal cannula in. No events were reported overnight. OBJECTIVE: VITAL SIGNS: Blood pressure 113/63. Heart rate 76. Respiratory rate 18. Temperature 98.5. Oxygen saturation 95%. GENERAL: Mr. Romeo is a 19-year-old male patient who is in no active distress currently. NEUROLOGIC: Alert and oriented. LUNGS: Diminished, but otherwise clear to auscultation bilaterally. CARDIOVASCULAR: Regular rate and rhythm. Normal S1, S2. ABDOMEN: Soft. Positive bowel sounds. ASSESSMENT: 1. Acute hypoxemic respiratory failure. 2. Acute asthma exacerbation secondary to vaping. PLAN: The patient seems to be stepwise improving. He will be placed on room air today along with several ambulation episodes in the hallway today with no O2. We will see how he does with that. If he does okay over the next 24 hours, he will be discharged on a tapering dose of prednisone. He has been counseled to discontinue vaping and he verbalizes understanding. #[id number] [facility]
[2019-09-18] MEDS: IPRATROPIUM BROMIDE NEBS 0.5 MG/2.5 ML VIAL NEB SCH ×2 (03:35→08:15)
[2019-09-18] MEDS: PANTOPRAZOLE SODIUM TAB 40 MG PO SCH (05:56)
[2019-09-18] MEDS: ALBUTEROL SULFATE 2.5 MG/3 ML VIAL NEB SCH (08:15)
[2019-09-18] MEDS: SODIUM CHLORIDE 0.9% (FLUSH) 10 ML SYG IV SCH (08:17)
[2019-09-18] MEDS: predniSONE 20 MG TAB PO SCH (08:17)
[2019-09-18 08:29] VITALS: BP 110/77; TEMP 98; O2SAT 96
--- NOTE | 2019-09-18 11:47 | DS ---
SUPERVISING PHYSICIAN: Stalin Bob MD ADMISSION DIAGNOSIS: 1. Acute hypoxic respiratory failure secondary to acute asthma exacerbation. DISCHARGE DIAGNOSIS: 1. Acute hypoxic respiratory failure secondary to acute asthma exacerbation. HOSPITAL COURSE: This is a 19-year-old male patient who came to the Emergency Room complaining of shortness of breath and wheezing that had been going on for about 2 weeks. His symptoms got so bad he felt like he was going to . When he came to the Emergency Room, his oxygen saturations were in the upper 80s and he was quite tachypneic. He was given DuoNeb and magnesium as well as steroids. ABG showed pO2 58, pCO2 41, pH 7.39. For that reason, he was referred for admission to the hospital. Over the course of the 5 days, the patient slowly but symptomatically did improve. He required O2 to maintain O2 saturations in the 90s. When he would ambulate, he would desaturate, however, on 09/17/19 he was taken off of oxygen, ambulated several times and never dropped below 92%. He was placed on oral steroids as well. Therefore today, 09/18/19, the patient will be discharged in stable condition. His instructions are to take a tapering dose of prednisone which has been sent to [facility]. Additionally, he will utilize his albuterol inhaler 2 puffs 4 times a day for the next 5 days. He will followup with Dr. Peña as an outpatient as well. It has been discussed with him also that he should not using vaping any longer and he agreed. #[id number] [facility]
== END 2019-09-18 08:36 | disposition home or self-care (01) | DRG 189 ==
LOC: ER 09:26 → OBSVTOIN 11:14 → MS 11:14
PROVIDERS: ADMIT Nurse Practitioner Acute Care; ATTEND Nurse Practitioner
DX: J96.01 Acute respiratory failure with hypoxia (principal); J45.901 Unspecified asthma with (acute) exacerbation; T59.891A Toxic effect of other specified gases, fumes and vapors, accidental (unintentional), initial encounter; F17.290 Nicotine dependence, other tobacco product, uncomplicated; Y92.009 Unspecified place in unspecified non-institutional (private) residence as the place of occurrence of the external cause; E80.6 Other disorders of bilirubin metabolism

== ENCOUNTER 2019-12-17 13:12 | Inpatient (IN) | payer OTHER ==
[2019-12-17] MEDS ORDERED: IPRATROPIUM/ALBUTEROL 3 ML VIAL NEB ONE ×5 (13:18→17:12)
[2019-12-17] MEDS ORDERED: predniSONE 20 MG TAB PO ONE (13:19)
[2019-12-17] MEDS ORDERED: MONTELUKAST 10 MG TAB PO ONE (13:19)
[2019-12-17] MEDS ORDERED: SODIUM CHL 0.9% 50ML VIAL 3 ML, ALBUTEROL SULFATE NEBS 15 MG NEB ONE ×2 (13:57)
[2019-12-17] MEDS ORDERED: SODIUM CHLORIDE 0.9% 50 ML VIAL ONE ×2 (14:06→14:09)
[2019-12-17] MEDS ORDERED: ALBUTEROL SULFATE 2.5 MG/3 ML VIAL NEB ONE ×2 (14:06→14:09)
[2019-12-17] MEDS ORDERED: methylPREDNISolone SODIUM SUC 125 MG/2 ML VIAL IV ONE (15:38)
[2019-12-17] MEDS ORDERED: ONDANSETRON ODT 8 MG TAB ONE (15:40)
--- NOTE | 2019-12-17 16:02 | RAD ---
EXAM DESCRIPTION: Chest,1 View CLINICAL HISTORY: asthma exac COMPARISON: September 14, 2019. FINDINGS: 1V portable upright Hyperinflated lungs from good depth of inspiration versus airway trapping. No consolidation, effusion or pneumothorax is demonstrated. Heart and mediastinum are normal in appearance. Bony structures are unremarkable. IMPRESSION: No acute pathology. Electronically signed by: Daryl Malhotra MD 12/17/2019 3:59 PM [facility]
[2019-12-17] MEDS ORDERED: MAGNESIUM SULFATE PREMIX 2GM 2 GM in PREMIX BAG 1 BAG IVPB ONE (16:11)
[2019-12-17] MEDS ORDERED: SODIUM CHLORIDE 0.9% 1000ML 1,000 ML IVS ONE (16:11)
[2019-12-17] MEDS ORDERED: MAGNESIUM SULFATE PREMIX 2GM 50 ML IVPB ONE (16:17)
[2019-12-17] MEDS ORDERED: ONDANSETRON ODT 8 MG TAB SL ONE (16:28)
--- NOTE | 2019-12-17 17:32 | ED.PDOC ---
History of Present Illness - General Chief Complaint: Respiratory Problem Stated Complaint: asthma Time Seen by Provider: 12/17/19 13:19 Source: patient Exam Limitations: no limitations - History of Present Illness Initial Comments: The patient is a 19-year-old male presents emergency room secondary to severe asthma exacerbation. He has been out of his asthma meds for the last week and due to financial inability to get them filled. The patient no longer smokes or vapes. No syncope. He is getting significantly fatigued. He is having some back spasms from the effort. He has had some nausea. No vomiting. He has felt dizzy. He has felt tired. No sore throat or runny nose. No fever. No productive cough. On exam the patient is in severe respiratory distress. Min imal air movement almost a quiet chest. Significant tripoding. Nasal flaring. Accessory muscle use. Timing/Duration: 1 week Severity: severe Improving Factors: nothing Worsening Factors: nothing Associated Symptoms: cough, loss of appetite, malaise, shortness of breath Allergies/Adverse Reactions: Allergies NO KNOWN ALLERGY Allergy (Verified 12/17/19 13:20) Home Medications: Ambulatory Orders Fluticasone/Salmeterol 250/50 [Advair 250/50 Diskus] 1 puff INH BID #1 inh 08/22/19 Montelukast [Singulair] 10 mg PO DAILY #30 tab 08/22/19 Albuterol Sulfate [Albuterol Sulfate Hfa] 1 dose NEB Q4H PRN 09/13/19 Review of Systems - Review of Systems Constitutional: States: malaise EENTM: States: no symptoms reported Respiratory: States: cough, short of breath, wheezing Cardiology: States: no symptoms reported Gastrointestinal/Abdominal: States: no symptoms reported Genitourinary: States: no symptoms reported Musculoskeletal: States: no symptoms reported Skin: States: no symptoms reported Neurological: States: no symptoms reported Endocrine: States: no symptoms reported All other Systems: No Change from Baseline Past Medical History (General) - Patient Medical History Hx Seizures: No Hx Stroke: No Hx Dementia: No Hx Asthma: Yes Hx of COPD: No Hx Cardiac Disorders: No Hx Congestive Heart Failure: No Hx Pacemaker: No Hx Hypertension: No Hx Thyroid Disease: No Hx Diabetes: No Hx Gastroesophageal Reflux: No Hx Renal Disease: No Hx Cancer: No Hx of HIV: No Hx Hepatitis C: No Hx MRSA: No Surgical History: no surgical history - Vaccination History Hx Tetanus, Diphtheria Vaccination: Yes Hx Influenza Vaccination: No Hx Pneumococcal Vaccination: No - Social History Hx Tobacco Use: No Hx Chewing Tobacco Use: No Hx Alcohol Use: Yes - occ Hx Substance Use: Yes - marijuana Hx Substance Use Treatment: No Hx Depression: No Hx Physical Abuse: No Hx Emotional Abuse: No Hx Suspected Abuse: No Family Medical History - Family History Mother Living Status: Still Living Physical Exam - Physical Exam General Appearance: Alert, Obvious distress, Ill Appearing Eye Exam: bilateral normal Ears, Nose, Throat: hearing grossly normal, normal pharynx, other - Nasal flaring Neck: full range of motion, other - Accessory muscle use Respiratory: respiratory distress, decreased breath sounds, accessory muscle use, wheezing - Almost a quiet chest Cardiovascular/Chest: normal peripheral pulses, no edema, tachycardia Peripheral Pulses: radial,right: 2+, radial,left: 2+ Gastrointestinal/Abdominal: non tender, soft Rectal Exam: deferred Back Exam: normal inspection, no CVA tenderness - Generalized muscle soreness from the breathing effort Extremity: normal range of motion, non-tender, normal inspection, no pedal edema, normal capillary refill Neurologic: developmental electronics assembler II-XII nml as tested, alert, oriented x 3, other - Obvious distress. Patient becomes very easily confused. He is frequently drowsy. Skin Exam: diaphoresis Comments: Vital Signs - 24 hr 12/17/19 12/17/19 12/17/19 13:22 13:23 13:28 Temperature 98.3 F Pulse Rate 131 H Pulse Rate [ 131 H monitor] Respiratory 24 24 22 Rate Blood Pressure 119/63 [RA] O2 Sat by Pulse 87 L 91 L Oximetry 12/17/19 12/17/19 14:19 15:48 Temperature Pulse Rate 126 H Pulse Rate [ monitor] Respiratory 20 Rate Blood Pressure [RA] O2 Sat by Pulse 98 93 L Oximetry Progress - Progress Progress: 12/17/19 17:33 The patient is a 19-year-old male presents emergency room for severe asthma exac erbation and respiratory distress, near respiratory failure. The patient received numerous breathing treatments of albuterol and ipratropium. He is also received IV oral steroids as well as a dose of oral prednisone. He has received IV magnesium. After about 4-1/2 hours of management in the emergency room he has finally relaxing out. He should tolerate being able to be spaced to every 1 hour on the nebulizer treatments at this point. He has received a liter of IV fluids as well. The patient will be admitted for continued care overnight of his asthma exacerbation. He did have one episode of nausea and vomiting and received a dose of Zofran which seems to have controlled the symptoms. Critical care time spent for respiratory distress is 40 minutes excluding otherwise billable procedures. fatmata [id number] - Results/Orders Results/Orders: Chest x-ray shows hyperinflated lung trujillo. No obvious pneumonia. Laboratory Tests 12/17/19 12/17/19 16:20 16:20 WBC 15.4 H RBC 5.28 Hgb 16.6 Hct 50.4 MCV 95.5 H MCH 31.5 H MCHC 33.0 RDW 13.6 Plt Count 261 MPV 8.7 Absolute Neuts (auto) 14.10 H Absolute Lymphs (auto) 0.50 L Absolute Monos (auto) 0.50 Absolute Eos (auto) 0.20 Absolute Basos (auto) 0.10 Neutrophils % 91.4 H Lymphocytes % 3.5 L Monocytes % 3.4 Eosinophils % 1.1 Basophils % 0.6 Sodium 135 Potassium 4.0 Chloride 98 L Carbon Dioxide 27 Anion Gap 14.0 BUN 10 Creatinine 1.00 BUN/Creatinine Ratio 10.0 Random Glucose 124 H Serum Osmolality 270.6 L Calcium 9.6 Magnesium 2.1 Total Bilirubin 1.1 H AST 21 ALT 15 Alkaline Phosphatase 76 Serum Total Protein 8.7 H Albumin 4.9 Globulin 3.8 H Albumin/Globulin Ratio 1.3 ABG shows a pH of 7.32. PaCO2 is 47. PaO2 is 70. This is on supplemental oxygen. Departure - Departure Clinical Impression: Respiratory distress Asthma with acute exacerbation Qualifiers: Asthma severity: severe Asthma persistence: persistent Qualified Code(s): J45.51 - Severe persistent asthma with (acute) exacerbation Disposition: Admit Patient Departure Forms: ED Discharge - Pt. Copy, Patient Portal Self Enrollment Referrals: UNKNOWN,PHYSICIAN [Primary Care Provider] - 1-2 Weeks Home Medications: Ambulatory Orders Fluticasone/Salmeterol 250/50 [Advair 250/50 Diskus] 1 puff INH BID #1 inh 08/22/19 Montelukast [Singulair] 10 mg PO DAILY #30 tab 08/22/19 Albuterol Sulfate [Albuterol Sulfate Hfa] 1 dose NEB Q4H PRN 09/13/19 Decision To Admit - Decistion To Admit Decision to Admit Reason: Medical Nature Decision to Admit Date: 12/17/19 Decision to Admit Time: 17:35
--- NOTE | 2019-12-17 17:54 | HP ---
SUPERVISING PHYSICIAN: Oliver Schmitt M.D. CHIEF COMPLAINT: Shortness of breath. HISTORY OF PRESENT ILLNESS: This is a 19 year-old male patient with a known history of asthma who presented to the Emergency Room due to shortness of breath. He has apparently been out of his medications for the last week and unable to get them filled due to inability to pay for them. In the Emergency Room, he was significantly short of breath. He had a blood gas with a pH of 7.32, pCO2 of 47, pO2 of 70, bicarb 24.7, base excess of negative 1.9, O2 saturation 93% at that time. CBC showed a white count of 15,000. Chemistry was unremarkable. He was given steroids, magnesium and DuoNeb. He required very frequent medications in the Emergency Room and the Emergency Room physician told me at first that he thought he might have to intubate the patient, but after several treatments the patient did start to turn around, and started to feel better. Therefore he has been referred for admission for asthma exacerbation. At time of examination, the patient is alert. He is moderately short of breath still on Venti mask, but states he feels a lot better than he did when he came in. PAST MEDICAL HISTORY: 1. Asthma. 2. Seasonal allergies. PAST SURGICAL HISTORY: None. OUTPATIENT MEDICATIONS: 1. Advair. 2. Albuterol inhaler. 3. Singulair. ALLERGIES: NO KNOWN DRUG ALLERGIES. FAMILY HISTORY: Hypertension. SOCIAL HISTORY: The patient used to date. He quit after the last admission. No alcohol and no illicit drugs. No smoking. REVIEW OF SYSTEMS: CONSTITUTIONAL: No fever or chills. No recent weight loss or weight gain. HEENT: No headaches, vision changes, ear pain, nasal congestion or throat pain. RESPIRATORY: Positive for shortness of breath. No cough, hemoptysis or pleuritic chest pain. CARDIOVASCULAR: No chest pain, palpitations or peripheral edema. GASTROINTESTINAL: No nausea, vomiting, diarrhea, constipation or abdominal pain. GENITOURINARY: No dysuria, frequency or flank pain. SKIN: No rashes, lesions or wounds. NEUROLOGIC: No headaches, seizures or paresthesias. ENDOCRINE: No polydipsia, polyuria or polyphagia. No heat or cold intolerance. MUSCULOSKELETAL: No joint pain, joint swelling or muscle cramps. PHYSICAL EXAMINATION: VITAL SIGNS: Blood pressure 124/72, heart rate 125, respiratory rate 24, temperature 98.9, oxygen saturation 96%. GENERAL: Mr. Romeo is a 19 year-old male patient who is in moderate respiratory distress at this time. NEUROLOGIC: The patient is alert and oriented. HEENT: Normocephalic, atraumatic. Pupils are equal and reactive. No nasal drainage. Throat with moist mucosa. LUNGS: With diffuse bilateral wheezing on inspiration and expiration. CARDIOVASCULAR: The patient has an elevated heart rate which is sinus tachycardia. Normal S1 and S2. ABDOMEN: Soft. Positive bowel sounds. EXTREMITIES: Lower extremities with no edema. NEUROLOGIC: The patient is alert and oriented. Chest x-ray that was done showed no acute infiltrations. LABORATORY: Labs were reviewed in history of present illness. ASSESSMENT: 1. Acute hypoxemic respiratory failure. 2. Asthma exacerbation. 3. Leukocytosis. PLAN: At this point the patient will be admitted and placed on frequent nebulizers as well as IV corticosteroids. I have placed him on empiric azithromycin given the leukocytosis. Once the patient starts to improve a little bit more we can spread out the frequency of the nebulizers and start to taper the steroids. I have placed him on Lovenox for deep venous thrombosis prophylaxis and put him on a proton pump inhibitor for gastrointestinal ulcer prophylaxis as well. [id number]
[2019-12-17] MEDS ORDERED: SODIUM CHLORIDE 0.9% (FLUSH) 10 ML SYG IV PRN (18:07)
[2019-12-17] MEDS ORDERED: IPRATROPIUM/ALBUTEROL 3 ML VIAL NEB PRN (18:07)
[2019-12-17] MEDS ORDERED: methylPREDNISolone SODIUM SUC 125 MG/2 ML VIAL IV SCH (18:11)
[2019-12-17] MEDS ORDERED: SODIUM CHLORIDE 0.9% 250ML 250 ML ONE (18:31)
[2019-12-17] MEDS ORDERED: AZITHROMYCIN IV 500 MG VIAL IVPB ONE (18:32)
[2019-12-17] MEDS: methylPREDNISolone SODIUM SUC 125 MG/2 ML VIAL IV SCH ×2 (18:39→23:49)
[2019-12-17] MEDS: ENOXAPARIN SODIUM 40 MG/0.4 ML SYG SUBCU SCH (18:39)
[2019-12-17] MEDS: PANTOPRAZOLE SODIUM IV 40 MG VIAL IV SCH (18:40)
[2019-12-17] MEDS: LACTATED RINGERS 1,000 ML IVS PRN (18:40)
[2019-12-17] MEDS: AZITHROMYCIN IV 500 MG in SODIUM CHLORIDE 0.9% 250ML 250 ML IVPB SCH (18:40)
[2019-12-17] MEDS: IV SET AND CAP CHANGE INJ INJ SCH (18:40)
[2019-12-17] MEDS: IPRATROPIUM/ALBUTEROL 3 ML VIAL NEB SCH ×6 (19:28→23:37)
[2019-12-17] MEDS ORDERED: HYDROcodone 5MG/APAP 325MG 1 EA TAB PO ONE (23:46)
[2019-12-18] MEDS: IPRATROPIUM/ALBUTEROL 3 ML VIAL NEB SCH ×13 (00:45→21:50)
[2019-12-18] MEDS: LACTATED RINGERS 1,000 ML IVS PRN ×2 (04:40→14:45)
[2019-12-18] MEDS: methylPREDNISolone SODIUM SUC 125 MG/2 ML VIAL IV SCH ×3 (05:51→17:29)
[2019-12-18] MEDS: PANTOPRAZOLE SODIUM IV 40 MG VIAL IV SCH (05:51)
--- NOTE | 2019-12-18 05:57 | RAD ---
CHEST, ONE VIEW XR CLINICAL HISTORY: asthma exacerbation COMPARISON: 12/17/2019 TECHNIQUE: AP Chest. FINDINGS: Heart is normal in size. Normal cardiomediastinal contours. Normal pulmonary vascularity. Lungs are hyperinflated which may be due to strong inspiratory effort. Pleural spaces are clear. Unremarkable soft tissues and bones. IMPRESSION: 1. No acute chest disease. Electronically signed by: Odette Barlow DO 12/18/2019 5:56 AM [employer]
[2019-12-18] MEDS: ENOXAPARIN SODIUM 40 MG/0.4 ML SYG SUBCU SCH (08:16)
--- NOTE | 2019-12-18 09:51 | PN ---
SUPERVISING PHYSICIAN: Tony Schmitt MD DATE: 12/18/19 SUBJECTIVE: The patient states he is feeling better today and breathing okay. He is able to sleep a little bit this morning. He has been having to have breathing treatments every hour throughout the night, so only short bursts of sleep. OBJECTIVE: VITAL SIGNS: Blood pressure 139/66. Heart rate 115. Respiratory rate 20. Temperature 98.4. Oxygen saturation 96% on a Ventimask. GENERAL: Mr. Romeo is a 19-year-old male patient who is still acutely ill, but most of the severe distress is gone. NEUROLOGIC: Alert and oriented. LUNGS: Diffuse inspiratory and expiratory wheezing, but overall improved from yesterday. CARDIOVASCULAR: Regular rate and rhythm. Normal S1, S2. Tachycardic. ABDOMEN: Soft. Positive bowel sounds. EXTREMITIES: Lower extremities with no edema. LABORATORY: Chest x-ray without any acute findings. White count 8.1, hemoglobin 15.3, platelet count 207. Chemistry unremarkable. ASSESSMENT: 1. Acute hypoxemic respiratory failure. 2. Asthma exacerbation. 3. Leukocytosis. PLAN: Leukocytosis is improved today. He still has a left shift. Anticipate that his white count will go up on steroids. Today, the plan will be to space out the breathing treatments longer than q.1h. We will go to q.4h. with p.r.n. treatments available as well. Respiratory therapy will check on the patient in between treatments to ensure he does not need any additional ones. We will keep the steroids at 125 mg q.6h. today and decrease tomorrow if there is subsequent improvement. #[id number] [facility]
[2019-12-18] MEDS ORDERED: FLUTICASONE/SALMETEROL 250/50 14 PUFF/17 GM INH INH ONE (16:36)
[2019-12-18] MEDS ORDERED: SODIUM CHLORIDE 0.9% 250ML 250 ML ONE (16:47)
[2019-12-18] MEDS ORDERED: AZITHROMYCIN IV 500 MG VIAL IVPB ONE (16:47)
[2019-12-18] MEDS: AZITHROMYCIN IV 500 MG in SODIUM CHLORIDE 0.9% 250ML 250 ML IVPB SCH (17:28)
[2019-12-18] MEDS ORDERED: HYDROcodone 5MG/APAP 325MG 1 EA TAB PO PRN ×2 (19:49→21:34)
[2019-12-18] MEDS: FLUTICASONE/SALMETEROL 250/50 14 PUFF/17 GM INH INH SCH (21:50)
[2019-12-19] MEDS: methylPREDNISolone SODIUM SUC 125 MG/2 ML VIAL IV SCH ×4 (00:02→18:00)
[2019-12-19] MEDS: LACTATED RINGERS 1,000 ML IVS PRN (00:23)
[2019-12-19] MEDS: IPRATROPIUM/ALBUTEROL 3 ML VIAL NEB SCH ×6 (02:04→22:21)
[2019-12-19] MEDS: PANTOPRAZOLE SODIUM IV 40 MG VIAL IV SCH (05:47)
[2019-12-19] MEDS: FLUTICASONE/SALMETEROL 250/50 14 PUFF/17 GM INH INH SCH ×2 (08:28→20:38)
[2019-12-19] MEDS: ENOXAPARIN SODIUM 40 MG/0.4 ML SYG SUBCU SCH (08:33)
--- NOTE | 2019-12-19 10:29 | PN ---
SUPERVISING PHYSICIAN: Tony Schmitt MD DATE: 12/19/19 SUBJECTIVE: The patient is breathing better. He slept well and is not requiring breathing treatments as frequently. OBJECTIVE: VITAL SIGNS: Blood pressure 111/67. Heart rate 85. Respiratory rate 18. Temperature 98.0. GENERAL: Mr. Romeo is a 19-year-old male patient who is without distress at this time. NEUROLOGIC: Alert and oriented. LUNGS: Some expiratory wheezing, worse on the right than the left. CARDIOVASCULAR: Regular rate and rhythm. Normal S1, S2. ABDOMEN: Soft. Positive bowel sounds. GENITOURINARY: Deferred. EXTREMITIES: Lower extremities with no edema. LABORATORY: White count 13.6, hemoglobin 14.8, hematocrit 35.0, platelet count 206. Chemistry with a sodium 135, potassium 4.4, chloride 99, CO2 25, BUN 17, creatinine 0.84. Glucose 125, calcium 9.2. ASSESSMENT: 1. Acute hypoxemic respiratory failure, improving. 2. Asthma exacerbation, improving. 3. Leukocytosis, likely secondary to steroids. PLAN: The patient is stepwise improving. Therefore, we will reduce his steroids to Solu-Medrol 60 mg every 6 hours. Continue q.4h. nebulizer treatments and try to hold off on any p.r.n. treatments if able. We will further reduce steroids tomorrow if he continues to improve. [facility][id number] [facility]
[2019-12-19] MEDS ORDERED: AZITHROMYCIN IV 500 MG VIAL IVPB ONE (16:17)
[2019-12-19] MEDS ORDERED: SODIUM CHLORIDE 0.9% 250ML 250 ML ONE (16:17)
[2019-12-19] MEDS: AZITHROMYCIN IV 500 MG in SODIUM CHLORIDE 0.9% 250ML 250 ML IVPB SCH (18:00)
[2019-12-20] MEDS: methylPREDNISolone SODIUM SUC 125 MG/2 ML VIAL IV SCH ×2 (00:07→05:59)
[2019-12-20] MEDS: IPRATROPIUM/ALBUTEROL 3 ML VIAL NEB SCH ×5 (03:37→19:37)
[2019-12-20] MEDS: PANTOPRAZOLE SODIUM IV 40 MG VIAL IV SCH (06:25)
[2019-12-20] MEDS: FLUTICASONE/SALMETEROL 250/50 14 PUFF/17 GM INH INH SCH ×2 (08:36→19:38)
[2019-12-20] MEDS: ENOXAPARIN SODIUM 40 MG/0.4 ML SYG SUBCU SCH (08:59)
--- NOTE | 2019-12-20 09:52 | PN ---
SUPERVISING PHYSICIAN: Tony Schmitt MD DATE: 12/20/19 SUBJECTIVE: The patient feels okay today with no significant shortness of breath. Appetite is good. OBJECTIVE: VITAL SIGNS: Blood pressure 114/76. Heart rate 90. Respiratory rate 20. Temperature 98.4. Oxygen saturation 95% on 2 liters via nasal cannula. GENERAL: Mr. Romeo is a 19-year-old male patient in no active distress. NEUROLOGIC: Alert and oriented. LUNGS: Diffuse wheezing, mainly on expiration. CARDIOVASCULAR: Regular rate and rhythm. Normal S1, S2. ABDOMEN: Soft. Positive bowel sounds. GENITOURINARY: Deferred. EXTREMITIES: Lower extremities with no edema. ASSESSMENT: 1. Acute hypoxemic respiratory failure, improving. 2. Asthma exacerbation, improving. 3. Leukocytosis, secondary to steroids. PLAN: I will decrease his Solu-Medrol to 20 mg every 6 hours today. The anticipation is to go to p.o. tomorrow and hopefully he can be discharged on Tuesday. Also, he cannot afford his Advair, so we are looking at other options for this. We may need to change him over to Symbicort. #[id number] [facility]
[2019-12-20] MEDS: methylPREDNISolone SODIUM SUC 40 MG/ML VIAL IV SCH ×3 (12:17→23:51)
[2019-12-20] MEDS ORDERED: SODIUM CHLORIDE 0.9% 250ML 250 ML ONE (18:05)
[2019-12-20] MEDS ORDERED: AZITHROMYCIN IV 500 MG VIAL IVPB ONE (18:05)
[2019-12-20] MEDS: AZITHROMYCIN IV 500 MG in SODIUM CHLORIDE 0.9% 250ML 250 ML IVPB SCH (18:16)
[2019-12-20] MEDS: IV SET AND CAP CHANGE INJ INJ SCH (18:47)
[2019-12-21] MEDS: IPRATROPIUM/ALBUTEROL 3 ML VIAL NEB SCH ×5 (00:39→16:58)
[2019-12-21] MEDS: methylPREDNISolone SODIUM SUC 40 MG/ML VIAL IV SCH (06:07)
[2019-12-21] MEDS: PANTOPRAZOLE SODIUM IV 40 MG VIAL IV SCH (06:07)
--- NOTE | 2019-12-21 06:21 | RAD ---
EXAM DESCRIPTION: X-ray single view chest. CLINICAL HISTORY: 19 years Male, asthma COMPARISON: 12/18/2019 and 12/17/2019 TECHNIQUE: Single portable x-ray view of the chest performed on 12/21/2019 at 6:11 AM FINDINGS: The lungs are well expanded and are clear. There is no evidence of a pneumothorax. The cardiac silhouette is normal in size and configuration. The mediastinal contours are normal. No acute osseous abnormality is identified. No focal soft tissue abnormalities are seen. Lines and tubes: None. IMPRESSION: No evidence of acute intrathoracic disease. Electronically signed by: Ana Cristina Adrian DO 12/21/2019 6:19 AM [facility]
[2019-12-21] MEDS: ENOXAPARIN SODIUM 40 MG/0.4 ML SYG SUBCU SCH (08:41)
[2019-12-21] MEDS: FLUTICASONE/SALMETEROL 250/50 14 PUFF/17 GM INH INH SCH (08:57)
[2019-12-21 10:23] VITALS: TEMP 98.2
[2019-12-21] MEDS ORDERED: predniSONE 20 MG TAB PO ONE (10:47)
[2019-12-21] MEDS ORDERED: BUDESONIDE NEBS 0.5 MG/2 ML INH NEB SCH (11:00)
[2019-12-21 15:45] VITALS: BP 132/71; O2SAT 92
--- NOTE | 2019-12-24 14:52 | DS ---
SUPERVISING PHYSICIAN: Tony Schmitt MD ADMISSION DIAGNOSIS: 1. Acute hypoxemic respiratory failure. 2. Asthma exacerbation. 3. Leukocytosis. DISCHARGE DIAGNOSIS: 1. Acute hypoxemic respiratory failure, now tolerating room air, resolved. 2. Asthma exacerbation, improved with steroids. 3. Leukocytosis, secondary to corticosteroids. REASON FOR HOSPITALIZATION: This is a 19 year-old male patient with a known history of asthma who presented to the Emergency Room due to shortness of breath. He has apparently been out of his medications for the last week and unable to get them filled due to inability to pay for them. In the Emergency Room, he was significantly short of breath. He had a blood gas with a pH of 7.32, pCO2 of 47, pO2 of 70, bicarb 24.7, base excess of negative 1.9, O2 saturation 93% at that time. CBC showed a white count of 15,000. Chemistry was unremarkable. He was given steroids, magnesium and DuoNeb. He required very frequent medications in the Emergency Room and the Emergency Room physician told me at first that he thought he might have to intubate the patient, but after several treatments the patient did start to turn around, and started to feel better. Therefore he has been referred for admission for asthma exacerbation. At time of examination, the patient is alert. He is moderately short of breath still on Ventimask, but states he feels a lot better than he did when he came in. LABORATORY: Initial white count 15,400. At discharge, it was 6,800. Hemoglobin and hematocrit were stable respectively at 15 and 47.3 Differential did show a left shift, but was resolving prior to discharge. Blood gas analysis on admission showed pH 7.327, pO2 70, pCO2 47, bicarb 24.7, base excess -1.9, saturation 93% on 2 liters nasal cannula. Chemistries at discharge showed normal electrolytes, BUN 20, creatinine 0.78. MICROBIOLOGY: Influenza A and B by PCR were negative. RADIOLOGY: He had multiple chest x-rays. His last chest x-ray on discharge showed no evidence of acute intrathoracic disease. HOSPITAL COURSE: Mr. Romeo was admitted for asthma exacerbation. He was started on aggressive treatment with updraft treatments, oxygen and Solu-Medrol tapered to prednisone p.o. He was given magnesium as well. Initially on admission he was started on antibiotics that included azithromycin. He did respond to therapy fairly slowly, but he was started on Pulmicort, he did show dramatic improvement and was felt stable enough to discharge home. DISCHARGE ASSESSMENT: VITAL SIGNS: Temperature 98.2. Pulse 87. Blood pressure 132/71. Respirations 20. Saturation 92% on room air, maintaining 92% to 94% on ambulation with room air. CHEST: Lung sounds were improved throughout with no notable wheezing, rales or rhonchi. HEART: Regular rate and rhythm. ABDOMEN: Soft, nontender. Positive bowel sounds. EXTREMITIES: No edema. NEUROLOGIC: Alert and oriented x3. PLAN: Mr. Romeo was discharged to followup with his primary care provider to continue with treatment of his asthma and develop an asthma action plan. He was out of Advair and noted he could not afford it. Therefore, I did transition him from Advair to Pulmicort along with his albuterol inhalers until financial arrangements can be made for him to get on more reasonable long-term maintenance therapy. His primary care physician is Dr. Peña and he is to followup with Dr. Peña and call for an appointment. Diet was regular diet as tolerated. Activity to increase as tolerated. Medications on discharge included: 1. Pulmicort 1 mg nebulized twice daily, no refills. 2. Medrol Dosepak 4 mg as directed, no refills. He was to continue all his other medications which included Singulair 10 mg daily, awaiting refill of his Advair. DISPOSITION: The patient is diastolic dysfunction home. CONDITION ON DISCHARGE: Stable and improved. #[id number] [facility]
== END 2019-12-21 16:35 | disposition home or self-care (01) | DRG 189 ==
LOC: ER 13:12 → MS 17:52 → OBSVTOIN 17:52
PROVIDERS: ADMIT Nurse Practitioner; ATTEND Nurse Practitioner
DX: J96.01 Acute respiratory failure with hypoxia (principal); J45.901 Unspecified asthma with (acute) exacerbation; D72.829 Elevated white blood cell count, unspecified; T38.0X5A Adverse effect of glucocorticoids and synthetic analogues, initial encounter; Y92.230 Patient room in hospital as the place of occurrence of the external cause; T48.6X6A Underdosing of antiasthmatics, initial encounter; Z91.120 Patient's intentional underdosing of medication regimen due to financial hardship; Y92.009 Unspecified place in unspecified non-institutional (private) residence as the place of occurrence of the external cause

== ENCOUNTER 2020-07-25 20:49 | Inpatient (IN) | payer OTHER ==
[2020-07-25] MEDS ORDERED: SODIUM CHL 0.9% 50ML VIAL 3 ML, ALBUTEROL SULFATE NEBS 15 MG NEB ONE ×2 (20:52)
[2020-07-25] MEDS ORDERED: MAGNESIUM SULFATE PREMIX 2GM 2 GM in PREMIX BAG 1 BAG IVPB ONE (20:56)
[2020-07-25] MEDS ORDERED: ALBUTEROL SULFATE 2.5 MG/3 ML VIAL NEB ONE ×2 (20:58→21:43)
--- NOTE | 2020-07-25 20:58 | ED.PDOC ---
History of Present Illness - General Time Seen by Provider: 07/25/20 20:52 - History of Present Illness Initial Comments: 20 yo male with hx of asthma exacerbations requiring hospitalization coming in with one day of worsening shortness of breath. Takes advir and rescue inhaler at home. Continues to get short of breath. EMS called. Patient hypoxic at 83 % when ems arrived, started on 4 L NC, currently saturating 97%. Denies dizziness, chest pain, fever, no sick contacts. Has had two prior hospitalizations this year for similar events. 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 states he is compliant with medications. no fever. does smoke marijuana Allergies/Adverse Reactions: Allergies NO KNOWN ALLERGY Allergy (Verified 12/17/19 13:20) Home Medications: Ambulatory Orders Fluticasone/Salmeterol 250/50 [Advair 250/50 Diskus] 1 puff INH BID #1 inh 08/22/19 Montelukast [Singulair] 10 mg PO DAILY #30 tab 08/22/19 Albuterol Sulfate [Albuterol Sulfate Hfa] 1 dose NEB Q4H PRN 09/13/19 Budesonide Nebs [Pulmicort Respules] 1 mg NEB BID #30 inh 12/21/19 Methylprednisolone [Medrol Dose Santiago] 4 mg PO DAILY 6 Days #21 tab 12/21/19 Review of Systems - Review of Systems Constitutional: Denies: chills, fever EENTM: Denies: blurred vision, nose congestion, throat pain, throat swelling, mouth pain, mouth swelling Respiratory: States: cough, short of breath, wheezing. Denies: orthopnea, stridor Cardiology: Denies: chest pain, edema, palpitations, syncope Gastrointestinal/Abdominal: Denies: abdominal pain, diarrhea, nausea, vomiting Genitourinary: Denies: dysuria, frequency Musculoskeletal: Denies: back pain, joint pain, joint swelling, muscle pain, muscle stiffness Skin: Denies: rash Neurological: Denies: headache, numbness, paresthesia, pre-existing deficit, tingling, tremors, weakness Endocrine: Denies: increased hunger, increased thirst, increased urine, unexplained weight gain, unexplained weight loss Hematologic/Lymphatic: Denies: blood clots, easy bleeding, easy bruising Past Medical History (General) - Patient Medical History Hx Seizures: No Hx Stroke: No Hx Dementia: No Hx Asthma: Yes - multiple hospitlizations, never been intubated Hx of COPD: No Hx Cardiac Disorders: No Hx Congestive Heart Failure: No Hx Pacemaker: No Hx Hypertension: No Hx Thyroid Disease: No Hx Diabetes: No Hx Gastroesophageal Reflux: No Hx Renal Disease: No Hx Cancer: No Hx of HIV: No Hx Hepatitis C: No Hx MRSA: No - Vaccination History Hx Tetanus, Diphtheria Vaccination: Yes Hx Influenza Vaccination: No Hx Pneumococcal Vaccination: No - Social History Hx Tobacco Use: No Hx Chewing Tobacco Use: No Hx Alcohol Use: Yes - occ Hx Substance Use: Yes - marijuana Hx Substance Use Treatment: No Hx Depression: No Hx Physical Abuse: No Hx Emotional Abuse: No Hx Suspected Abuse: No Family Medical History - Family History Mother Living Status: Still Living Physical Exam - Physical Exam General Appearance: Alert, Comfortable, Well Developed, Well Groomed, Well Hydrated, Well Nourished Eyes, Ears, Nose, Throat Exam: PERRL/EOMI, normal ENT inspection, TMs normal Neck: non-tender, full range of motion, supple, normal inspection Respiratory: chest non-tender, accessory muscle use, wheezing, expiration, inspiration, other - tachypnea Cardiovascular/Chest: normal peripheral pulses, regular rate, rhythm, no edema, no gallop, no JVD, no murmur Peripheral Pulses: radial,right: 2+, radial,left: 2+, dorsalis pedis,right: 2+, dorsalis pedis,left: 2+, posterior tibialis,right: 2+, posterior tibialis,left: 2+ Gastrointestinal/Abdominal: normal bowel sounds, non tender, soft, no organomegaly, no pulsatile mass Rectal Exam: deferred Extremity: normal range of motion, non-tender, normal inspection 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 Started him on hour long albuterol neb with ipratropium. Also given 3 gram of magnesium. States his symptoms went from a severity of 3 to 6 (10 being best) given pulmocort neb. some intercostal retractions, ins wheezing improved. 07/25/20 22:57 RESPIRATORY PANEL 2 Stat Laboratory Results WBC 10.8 K/mm3 (4.8-10.8) 07/25/20 21:40 RBC 5.10 M/mm3 (4.70-6.10) 07/25/20 21:40 Hgb 16.5 gm/dL (14.0-18.0) 07/25/20 21:40 Hct 47.6 % (42.0-52.0) 07/25/20 21:40 MCV 93.3 fl (80.0-94.0) 07/25/20 21:40 MCH 32.3 pg (27.0-31.0) H 07/25/20 21:40 MCHC 34.6 g/dL (33.0-37.0) 07/25/20 21:40 RDW 13.7 % (11.5-14.5) 07/25/20 21:40 Plt Count 233 K/mm3 (130-400) 07/25/20 21:40 MPV 8.1 fl (7.40-10.4) 07/25/20 21:40 Absolute Neuts (auto) 8.20 K/uL (1.8-6.8) H 07/25/20 21:40 Absolute Lymphs (auto) 1.20 K/uL (1.0-3.4) 07/25/20 21:40 Absolute Monos (auto) 0.90 K/uL (0.2-0.8) H 07/25/20 21:40 Absolute Eos (auto) 0.50 K/uL (0.0-0.4) H 07/25/20 21:40 Absolute Basos (auto) 0.10 K/uL (0.0-0.1) 07/25/20 21:40 Neutrophils % 75.6 % (42.0-78.0) 07/25/20 21:40 Lymphocytes % 11.0 % (20.0-50.0) L 07/25/20 21:40 Monocytes % 8.0 % (2.0-9.0) 07/25/20 21:40 Eosinophils % 4.9 % (1.0-5.0) 07/25/20 21:40 Basophils % 0.5 % (0.0-2.0) 07/25/20 21:40 pCO2 40 mmHg (35-48) 07/25/20 20:56 pO2 81 mmHg (83-108) L 07/25/20 20:56 HCO3 22.7 mmol/L 07/25/20 20:56 ABG pH 7.365 (7.35-7.45) 07/25/20 20:56 ABG O2 Saturation 96.0 % (95.0-99.0) 07/25/20 20:56 ABG Base Excess -2.5 mmol/L 07/25/20 20:56 ABG Deoxyhemoglobin 3.9 % (0.0-5.0) 07/25/20 20:56 Oxyhemoglobin % 93.9 % (94.0-98.0) L 07/25/20 20:56 Carboxyhemoglobin % 1.4 % (0.5-1.5) 07/25/20 20:56 Methemoglobin % Sat 0.8 % (0.0-1.5) 07/25/20 20:56 Calc Total Hemoglobin 16.6 g/dL (13.5-17.5) 07/25/20 20:56 Sodium 139 mmol/L (135-145) 07/25/20 21:40 Potassium 3.5 mmol/L (3.6-5.0) L 07/25/20 21:40 Chloride 104 mmol/L (101-111) 07/25/20 21:40 Carbon Dioxide 22 mmol/L (21-31) 07/25/20 21:40 Anion Gap 16.5 (12-18) 07/25/20 21:40 BUN 9 mg/dL (7-18) 07/25/20 21:40 Creatinine 0.84 mg/dL (0.6-1.3) 07/25/20 21:40 BUN/Creatinine Ratio 10.7 (10-20) 07/25/20 21:40 Random Glucose 112 mg/dL (70-105) H 07/25/20 21:40 Serum Osmolality 277.0 mOsm/L (275-295) 07/25/20 21:40 Calcium 9.1 mg/dL (8.4-10.2) 07/25/20 21:40 Total Bilirubin 1.4 mg/dL (0.2-1.0) H 07/25/20 21:40 AST 23 IU/L (10-42) 07/25/20 21:40 ALT 18 IU/L (10-60) 07/25/20 21:40 Alkaline Phosphatase 78 IU/L (42-121) 07/25/20 21:40 Serum Total Protein 8.5 gm/dL (6.4-8.2) H 07/25/20 21:40 Albumin 4.9 g/dl (3.2-5.5) 07/25/20 21:40 Globulin 3.6 gm/dL (2.3-3.5) H 07/25/20 21:40 Albumin/Globulin Ratio 1.4 (1.1-1.9) 07/25/20 21:40 07/25/20 23:02 RN documented oxygen saturation 91%, when I evaluated patient it was 95%, bp cuff on same arm as saturation. patient on phone. no apparent distress. 07/26/20 00:21 patient currently sleeping comfortably. saturating 97% on 4 L. exp wheeze still present. 07/26/20 01:08 The data reviewed when caring for this patient included: nurse notes, prior records, etc. The history and assessments from nurses notes were reviewed and considered, and the patient's home medication list was also reviewed and considered. My assessment and the results of testing completed here in the ED were discussed with the patient. All questions were answered, and he express understanding of my assessment and the plan. vss, patient was admitted to floor in stable condition. Sasha Parry DO #[id number] - EKG/XRAY/CT EKG: Sinus, Tachy Comments: incomplete RBB, right axis, no prior for comparison. XRAY: chest Xray Comments: no acute cardiopulmonary pathology. Departure - Departure Clinical Impression: Acute bronchospasm, Hypoxemia Asthma with exacerbation Qualifiers: Asthma severity: severe Asthma persistence: unspecified Qualified Code(s): J45.901 - Unspecified asthma with (acute) exacerbation ICD-10 Supporting Text: Rhinovirus + Time of Disposition: 01:07 Disposition: Admit Patient Home Medications: Ambulatory Orders Fluticasone/Salmeterol 250/50 [Advair 250/50 Diskus] 1 puff INH BID #1 inh 08/22/19 Montelukast [Singulair] 10 mg PO DAILY #30 tab 08/22/19 Albuterol Sulfate [Albuterol Sulfate Hfa] 1 dose NEB Q4H PRN 09/13/19 Budesonide Nebs [Pulmicort Respules] 1 mg NEB BID #30 inh 12/21/19 Methylprednisolone [Medrol Dose Santiago] 4 mg PO DAILY 6 Days #21 tab 12/21/19 Decision To Admit - Decistion To Admit Decision to Admit Reason: Medical Nature Decision to Admit Date: 07/26/20 Decision to Admit Time: 23:00
[2020-07-25] MEDS ORDERED: IPRATROPIUM BROMIDE NEBS 0.5 MG/2.5 ML VIAL NEB ONE ×2 (21:28→23:43)
--- NOTE | 2020-07-25 21:43 | RAD ---
EXAM: Chest,1 View CLINICAL INDICATION: 20-year-old male with shortness of breath. TECHNIQUE: Single view, AP portable chest was obtained. COMPARISON: 12/21/2019. FINDINGS: Unremarkable cardiac and mediastinal silhouette. Heart size is normal. Lungs are clear without focal opacity, pneumothorax or pleural effusions. The visualized bones are within normal limits. IMPRESSION: No acute cardiopulmonary abnormalities. Electronically signed by: Miguelina Tinsley MD 07/25/2020 9:41 PM CDT
[2020-07-25] MEDS ORDERED: BUDESONIDE NEBS 0.5 MG/2 ML INH NEB ONE ×2 (22:41→22:43)
[2020-07-25] MEDS ORDERED: MAGNESIUM SULFATE INJ 1 GM in SODIUM CHLORIDE 0.9% 100ML 100 ML IVPB ONE (23:03)
--- NOTE | 2020-07-26 00:57 | HP ---
SUPERVISING PHYSICIAN: Stalin Bob M.D. CHIEF COMPLAINT: Shortness of breath. HISTORY OF PRESENT ILLNESS: This is a 20 year-old male with a significant history of asthma exacerbation requiring hospitalization that presented to the Emergency Room after 1 day of worsening shortness of breath. He does take Advair and has a rescue inhaler at home. Initially in the Emergency Room he was hypoxic at 83% and was started on 4 liters nasal cannula. He actually had been hospitalized within the last year due to vaping and at that time was almost intubated. He is significantly short of breath at this time and requiring a nonrebreather. His initial vital signs were temperature 97.2 with a heart rate of 96, blood pressure 108/71, respiratory rate 24, O2 saturation 97% on nasal cannula, although he did have 83% on room air and his oxygen has to be titrated to keep his saturations above 92%. His heart rate did also go up to the 130s. Initial lab showed a CBC that is basically unremarkable but his blood gas did show a pO2 of 81, pH was 7.36 and O2 saturation was 96%. At that time he was on oxygen. Chemistries show electrolytes basically within normal limits with the exception of his potassium was slightly low at 3.5. Bilirubin was high at 1.4. Respiratory panel per PCR was negative for everything except human rhino/enterovirus. Chest x-ray showed no acute cardiopulmonary abnormalities. He was given multiple breathing treatments, including DuoNeb in the Emergency Room. He was also given a dose of Solu-Medrol and some magnesium. He received Ipratropium nebulizers. He also complained of some lower back pain but he felt that that was due to him lying in bed for the last 24 to 48 hours. He was admitted to the hospital and placed in observation in stable condition. PAST MEDICAL HISTORY: 1. Asthma. 2. Seasonal allergies. 3. Anxiety. 4. Previous history of vaping cigarettes. PAST SURGICAL HISTORY: None. OUTPATIENT MEDICATIONS: 1. Pulmicort. 2. Rescue inhaler. ALLERGIES: NO KNOWN DRUG ALLERGIES. FAMILY HISTORY: Hypertension. SOCIAL HISTORY: He lives in [place]. He denies smoking tobacco. He did vape for some time but quit about 8 months ago. He does use marijuana occasionally but there is no ETOH use. REVIEW OF SYSTEMS: GENERAL: Negative for fever, chills or weight changes. HEENT: Negative for sinus symptoms, ear pain, vision changes or sore throat. RESPIRATORY: As per History of Present Illness which includes shortness of breath, coughing and wheezing. CARDIAC: Negative for chest pain, palpitations or tachycardia. GASTROINTESTINAL: Negative for nausea, vomiting, diarrhea or constipation although he had some mild nausea 2 days ago that has resolved. GENITOURINARY: Negative for hematuria, dysuria or polyuria. SKIN: Negative for lesions or rashes. MUSCULOSKELETAL: Positive for some low back pain. Negative for arthralgias, myalgias. NEUROLOGIC: Negative for headache, dizziness or seizures. PHYSICAL EXAMINATION: VITAL SIGNS: Temperature 98.3, heart rate 103, blood pressure 122/76, respiratory rate 20 to 24, O2 saturation 100% on nonrebreather. GENERAL: This is a 20 year-old male patient who is lying in his hospital bed. He is sitting straight up. He is in moderate respiratory distress. HEENT: Normocephalic, atraumatic. Pupils are equal and reactive. Oropharynx is clear. NECK: Supple without mass. RESPIRATORY: Inspiratory and expiratory wheezes noted with very diminished breath sounds. He is tachypneic and has some mild abdominal respirations with occasional retractions. He can only speak in 1 to 2 word phrases as he gets extremely short of breath. CARDIOVASCULAR: Regular rate and rhythm. At times he is tachycardic. GASTROINTESTINAL: Abdomen is soft, nondistended, nontender. Bowel sounds are positive. EXTREMITIES: No cyanosis, clubbing or edema. NEUROLOGIC: Awake, alert and oriented times three. SKIN: Warm and dry with no lesions or rashes noted. LABORATORY: Labs and films are as per the History of Present Illness. ASSESSMENT: 1. Acute hypoxic respiratory failure secondary to exacerbation of chronic persistent asthma.. 2. Seasonal allergies. 3. Mild back pain secondary to disuse over the last 24 to 48 hours. 4. History of vaping. He quit approximately 7 to 8 months ago. PLAN: The patient has been initiated on the pneumonia protocol. He is not on any antibiotics at this time but due to his extreme shortness of breath as well as his multiple co-morbidities and past medical history, I will start him on azithromycin and Rocephin. He received some Solu-Medrol in the Emergency Room and I will continue that on a slow taper. I have discontinued his Albuterol and I have restarted him on Ipratropium both scheduled and p.r.n. He will have aggressive pulmonary hygiene. I have given him some Ibuprofen and some Tramadol for pain. He will have Lovenox for DVT prophylaxis as well as a PPI for ulcer prophylaxis. I have ordered lab for in the morning. Will continue to monitor closely and follow as needed. #[id number] [facility]
[2020-07-26] MEDS ORDERED: ACETAMINOPHEN 325 MG TAB PO PRN (01:14)
[2020-07-26] MEDS ORDERED: IPRATROPIUM/ALBUTEROL 3 ML VIAL INH PRN (01:14)
[2020-07-26] MEDS ORDERED: ONDANSETRON INJ 4 MG/2 ML VIAL IV PRN (01:14)
[2020-07-26] MEDS ORDERED: KETOROLAC TROMETHAMINE INJ 30 MG/ML VIAL IV ONE (01:28)
[2020-07-26] MEDS ORDERED: ALPRAZolam 0.25 MG TAB PO ONE ×2 (01:29→06:20)
[2020-07-26] MEDS ORDERED: methylPREDNISolone SODIUM SUC 125 MG/2 ML VIAL ONE ×2 (01:34→09:02)
[2020-07-26] MEDS: methylPREDNISolone SODIUM SUC 125 MG/2 ML VIAL IV SCH ×4 (01:38→21:36)
[2020-07-26] MEDS: IV SET AND CAP CHANGE INJ INJ SCH ×2 (01:45→11:55)
[2020-07-26] MEDS ORDERED: IPRATROPIUM/ALBUTEROL 3 ML VIAL NEB ONE ×3 (05:51→12:24)
[2020-07-26] MEDS ORDERED: IPRATROPIUM/ALBUTEROL 3 ML VIAL INH SCH (08:00)
[2020-07-26] MEDS: BUDESONIDE NEBS 0.5 MG/2 ML INH NEB SCH ×2 (08:40→20:45)
[2020-07-26] MEDS ORDERED: ALPRAZolam 0.25 MG TAB PO PRN (08:47)
[2020-07-26] MEDS: MONTELUKAST 10 MG TAB PO SCH (09:08)
[2020-07-26] MEDS: ALPRAZolam 0.25 MG TAB PO SCH ×3 (09:09→20:41)
[2020-07-26] MEDS: IBUPROFEN 200 MG TAB PO PRN (09:09)
[2020-07-26] MEDS: guaiFENesin ER TAB 600 MG TAB PO SCH ×2 (09:17→20:40)
[2020-07-26] MEDS ORDERED: traMADol HCL 50 MG TAB PO PRN (11:19)
[2020-07-26] MEDS ORDERED: SODIUM CHLORIDE 0.9% (FLUSH) 10 ML SYG IV PRN (11:36)
[2020-07-26] MEDS ORDERED: IPRATROPIUM BROMIDE NEBS 0.5 MG/2.5 ML VIAL NEB PRN (11:47)
[2020-07-26] MEDS ORDERED: AZITHROMYCIN IV 500 MG in SODIUM CHLORIDE 0.9% 250ML 250 ML IVPB ONE (12:08)
[2020-07-26] MEDS ORDERED: AZITHROMYCIN IV 500 MG VIAL IVPB ONE (12:14)
[2020-07-26] MEDS ORDERED: SODIUM CHLORIDE 0.9% 250ML 250 ML ONE (12:14)
[2020-07-26] MEDS ORDERED: BUDESONIDE NEBS 0.25 MG/2 ML INH ONE (12:25)
[2020-07-26] MEDS ORDERED: MORPHINE SULFATE INJ 10 MG/ML VIAL IV ONE (12:30)
[2020-07-26] MEDS ORDERED: cefTRIAXone SODIUM 1 GM in SODIUM CHL 0.9% 50ML MIN-BAG+ 50 ML IVPB SCH (12:30)
[2020-07-26] MEDS: IPRATROPIUM BROMIDE NEBS 0.5 MG/2.5 ML VIAL NEB SCH ×4 (13:40→20:45)
[2020-07-26] MEDS ORDERED: cefTRIAXone SODIUM 1 GM VIAL ONE (14:27)
[2020-07-26] MEDS ORDERED: SODIUM CHL 0.9% 50ML MIN-BAG+ 50 ML IVPB ONE (14:28)
[2020-07-26] MEDS: cefTRIAXone SODIUM 1 GM in SODIUM CHL 0.9% 50ML MIN-BAG+ 50 ML IVPB SCH (14:33)
[2020-07-26] MEDS: ENOXAPARIN SODIUM 40 MG/0.4 ML SYG SUBCU SCH (20:40)
[2020-07-27] MEDS: ALPRAZolam 0.25 MG TAB PO SCH ×4 (02:42→20:32)
[2020-07-27] MEDS ORDERED: ALPRAZolam 0.25 MG TAB ONE ×3 (02:42→16:34)
[2020-07-27] MEDS ORDERED: SODIUM CHLORIDE 0.9% 500ML 500 ML IVS ONE (04:51)
[2020-07-27] MEDS: methylPREDNISolone SODIUM SUC 125 MG/2 ML VIAL IV SCH (05:37)
[2020-07-27] MEDS ORDERED: BUDESONIDE NEBS 0.5 MG/2 ML INH NEB ONE ×2 (07:20→19:38)
[2020-07-27] MEDS: IPRATROPIUM BROMIDE NEBS 0.5 MG/2.5 ML VIAL NEB SCH (07:25)
[2020-07-27] MEDS: BUDESONIDE NEBS 0.5 MG/2 ML INH NEB SCH ×2 (07:26→20:51)
--- NOTE | 2020-07-27 08:30 | RAD ---
EXAM DESCRIPTION: Chest x-ray two views CLINICAL HISTORY:20 years Male, Pneumonia Comparison: July 25, 2020 FINDINGS: There is air within the mediastinum extending from the lower neck above the thoracic inlet inferiorly to at least the level of the jaime. No definite pneumothorax is identified. Subcutaneous emphysema is present in the lower neck bilaterally. Lungs are clear. No pleural abnormalities. Cardiac silhouette is normal in size. IMPRESSION: Pneumomediastinum, new from prior exam. Recommend further evaluation with CT soft tissues of the neck. Electronically signed by: Azar Cruz DO 07/27/2020 8:28 AM CDT
[2020-07-27] MEDS ORDERED: MONTELUKAST 10 MG TAB ONE (08:31)
[2020-07-27] MEDS ORDERED: cefTRIAXone SODIUM 1 GM VIAL ONE (08:32)
[2020-07-27] MEDS ORDERED: guaiFENesin ER TAB 600 MG TAB ONE (08:32)
[2020-07-27] MEDS ORDERED: SODIUM CHL 0.9% 50ML MIN-BAG+ 50 ML IVPB ONE (08:33)
[2020-07-27] MEDS: cefTRIAXone SODIUM 1 GM in SODIUM CHL 0.9% 50ML MIN-BAG+ 50 ML IVPB SCH (09:25)
[2020-07-27] MEDS: guaiFENesin ER TAB 600 MG TAB PO SCH ×2 (09:26→20:32)
[2020-07-27] MEDS: MONTELUKAST 10 MG TAB PO SCH (09:26)
--- NOTE | 2020-07-27 09:44 | CT ---
EXAM: CT Neck With Contrast HISTORY: Right pneumomediastinum . TECHNIQUE: CT of the neck was obtained with intravenous contrast from the skull base to the thoracic inlet. The CT exam was performed using one or more of the following dose reduction techniques: Automated exposure control, adjustment of the mA and/or kV according to patient size, and/or use of iterative reconstruction technique. COMPARISON: Chest x-ray from earlier today. FINDINGS: Moderate upper pneumomediastinum tracking into the supraclavicular and deep soft tissues of the neck. No pneumothorax. No radiopaque foreign body projects over the upper aerodigestive tract cord neck. Normal enhancement of the carotid and vertebral arteries in the neck. No plaque, stenosis or dissection. Mild mucosal thickening in the maxillary sinuses. No acute bone abnormality in the neck. IMPRESSION: 1. Moderate upper pneumomediastinum and subcutaneous emphysema tracking into the the supraclavicular and soft tissues of the neck. 2. Normal carotid and vertebral arteries in the neck. Electronically signed by: Daryl Wu MD 07/27/2020 9:43 AM CDT
[2020-07-27] MEDS ORDERED: IPRATROPIUM/ALBUTEROL 3 ML VIAL NEB PRN (10:20)
[2020-07-27] MEDS ORDERED: DEX 5% W/NACL 0.45% 1000ML 1,000 ML IVS PRN (11:07)
[2020-07-27] MEDS: IPRATROPIUM/ALBUTEROL 3 ML VIAL NEB SCH ×3 (13:00→20:51)
--- NOTE | 2020-07-27 14:22 | PN ---
SUPERVISING PHYSICIAN: Stalin Bob M.D. DATE: 07/27/20 SUBJECTIVE: The patient is lying in bed. He admits he is in much less respiratory distress today than he was yesterday and he feels somewhat better. He is still not hungry and does not want to eat anything. I have encouraged him to eat and drink as many fluids as possible. I also discussed with him his new diagnosis of a pneumomediastinum and the patient voiced understanding. OBJECTIVE: VITAL SIGNS: Temperature 98.4, heart rate 99, blood pressure 97/63, respiratory rate 20, O2 saturation 96% on 2 liters nasal cannula. Overnight he had been on 3 liters nasal cannula. NECK: There is no tracheal deviation and no subcutaneous emphysema noted in his neck area. RESPIRATORY: Somewhat diminished throughout but otherwise clear to auscultation. CARDIAC: Regular rate and rhythm. At times he is mildly tachycardic. NEUROLOGIC: He is awake, alert and oriented times three. LABORATORY: WBCs are 12,800 with hemoglobin 14.9, hematocrit 44.1. He does have a left shift on his differential. Electrolytes are basically within normal limits. BUN is 24, creatinine 0.87. Liver enzymes are within normal limits. RADIOLOGY: Chest x-ray shows pneumomediastinum, new from prior exam. Recommend further evaluation with CT of the soft tissues of the neck. CTA shows: 1. Moderate upper pneumomediastinum and subcutaneous emphysema tracking into the supraclavicular and soft tissues of the neck. 2. Normal carotid and vertebral arteries in the neck. All other labs and films have been reviewed via the EMR. ASSESSMENT: 1. Pneumomediastinum without trauma. At this point the patient's vital signs are stable. 2. Acute hypoxic respiratory failure secondary to exacerbation of chronic persistent asthma that has improved. 3. Seasonal allergies. 4. Mild back pain secondary to disuse over the last 24 to 48 hours that has improved. 5. History of vaping. He quit approximately 7 to 8 months ago. PLAN: We will continue present supportive care. Due to the new diagnosis of pneumomediastinum, I spoke with Dr. Nichols, pharm spec in [place] and he felt that since the patient was stable he recommended close followup with chest x-rays, and to continue with nebulizer treatments, but we could discontinue any pulmonary hygiene. I have changed him from an observation to a full admission. Dr. Nichols also said that we could call him for any further recommendations and that he would take him in transfer if the patient's clinical presentation worsened. I have encouraged him to eat but I will put him on some fluids since his oral intake is poor. Will continue on his Lovenox for DVT prophylaxis as well as his antibiotics. I have tapered his IV steroids to oral steroids. Most likely he will be in here for 2 to 3 more days. Will do lab and a chest x-ray in the morning. Will follow him closely and treat as needed. #[id number] [facility]
--- NOTE | 2020-07-27 15:28 | RAD ---
EXAMINATION: Chest x-ray 2 views. INDICATION: Pneumomediastinum COMPARISON: Earlier same date at 0709 hours TECHNIQUE: Frontal and lateral radiographs of the chest. FINDINGS: The cardiac silhouette is normal in size. Stable pneumomediastinum. No focal consolidative process. There is no pneumothorax. Bones are grossly intact. IMPRESSION: Stable appearing pneumomediastinum. Electronically signed by: Erick Hillman MD 07/27/2020 3:26 PM CDT
[2020-07-27] MEDS: methylPREDNISolone SODIUM SUC 40 MG/ML VIAL IV SCH ×2 (16:35→22:06)
[2020-07-27] MEDS ORDERED: MEMANTINE 10 MG TAB ONE (19:12)
[2020-07-27] MEDS ORDERED: SODIUM CHLORIDE 0.9% (FLUSH) 10 ML SYG ONE (19:13)
[2020-07-27] MEDS ORDERED: ENOXAPARIN SODIUM 40 MG/0.4 ML SYG SUBCU ONE (19:13)
[2020-07-27] MEDS ORDERED: PANTOPRAZOLE SODIUM IV 40 MG VIAL ONE (19:13)
[2020-07-27] MEDS: IBUPROFEN 200 MG TAB PO PRN ×2 (20:30→21:15)
[2020-07-27] MEDS ORDERED: IBUPROFEN 200 MG TAB ONE (20:30)
[2020-07-27] MEDS: ENOXAPARIN SODIUM 40 MG/0.4 ML SYG SUBCU SCH (20:32)
[2020-07-27] MEDS: SODIUM CHLORIDE 0.9% (FLUSH) 10 ML SYG IV PRN (22:06)
[2020-07-28] MEDS ORDERED: ALPRAZolam 0.25 MG TAB ONE ×2 (02:42→09:08)
[2020-07-28] MEDS: ALPRAZolam 0.25 MG TAB PO SCH ×4 (02:56→21:08)
[2020-07-28] MEDS: SODIUM CHLORIDE 0.9% (FLUSH) 10 ML SYG IV PRN ×2 (05:14→15:13)
[2020-07-28] MEDS: methylPREDNISolone SODIUM SUC 40 MG/ML VIAL IV SCH (05:14)
--- NOTE | 2020-07-28 07:27 | RAD ---
EXAM: Two view chest. INDICATION: Pneumomediastinum. COMPARISON: Chest x-ray: 07/27/2020. FINDINGS: Stable pneumomediastinum and subcutaneous emphysema along the neck. Lungs are clear. Heart is normal in size. No pneumothorax or pleural effusion. Bones are unremarkable. IMPRESSION: Stable pneumomediastinum and subcutaneous emphysema along the neck. Electronically signed by: Gwyn Garcia MD 07/28/2020 7:25 AM CDT
[2020-07-28] MEDS ORDERED: IPRATROPIUM/ALBUTEROL 3 ML VIAL NEB ONE (08:10)
[2020-07-28] MEDS ORDERED: BUDESONIDE NEBS 0.5 MG/2 ML INH NEB ONE (08:10)
[2020-07-28] MEDS: IPRATROPIUM/ALBUTEROL 3 ML VIAL NEB SCH ×4 (08:45→20:49)
[2020-07-28] MEDS: BUDESONIDE NEBS 0.5 MG/2 ML INH NEB SCH ×2 (08:45→20:49)
[2020-07-28] MEDS ORDERED: MONTELUKAST 10 MG TAB ONE (09:07)
[2020-07-28] MEDS ORDERED: cefTRIAXone SODIUM 1 GM VIAL ONE (09:08)
[2020-07-28] MEDS ORDERED: guaiFENesin ER TAB 600 MG TAB ONE (09:08)
[2020-07-28] MEDS: predniSONE 20 MG TAB PO SCH (10:13)
[2020-07-28] MEDS: guaiFENesin ER TAB 600 MG TAB PO SCH ×2 (10:13→21:08)
[2020-07-28] MEDS: MONTELUKAST 10 MG TAB PO SCH (10:13)
[2020-07-28] MEDS: cefTRIAXone SODIUM 1 GM in SODIUM CHL 0.9% 50ML MIN-BAG+ 50 ML IVPB SCH (10:13)
[2020-07-28] MEDS ORDERED: SODIUM CHLORIDE 0.9% (FLUSH) 10 ML SYG IV ONE (13:33)
[2020-07-28] MEDS: ENOXAPARIN SODIUM 40 MG/0.4 ML SYG SUBCU SCH (21:09)
[2020-07-29] MEDS: IV SET AND CAP CHANGE INJ INJ SCH ×2 (00:33→14:46)
[2020-07-29] MEDS: ALPRAZolam 0.25 MG TAB PO SCH ×4 (03:25→21:31)
[2020-07-29] MEDS: PANTOPRAZOLE SODIUM IV 40 MG VIAL IV SCH (06:00)
--- NOTE | 2020-07-29 07:40 | RAD ---
EXAM DESCRIPTION: Chest,2 Views CLINICAL HISTORY: 20 years Male, pneumomediastinum COMPARISON: Yesterday Findings: Two view(s)/radiograph(s) Improved pneumomediastinum. Similar subcutaneous emphysema overlying the base of the neck. No pneumothorax. No pleural effusion. Cardiac silhouette and pulmonary vasculature are within normal limits. The lungs are clear. No acute osseous abnormality. IMPRESSION: Improved pneumomediastinum. Electronically signed by: Pedro Meadows MD 07/29/2020 7:38 AM CDT
--- NOTE | 2020-07-29 08:34 | PN ---
SUPERVISING PHYSICIAN: Stalin Bob M.D. DATE: 07/28/20 SUBJECTIVE: The patient is showing improvement in regards to his breathing. He actually today looks to be stabilizing. He has not had any further complaints of worsening shortness of breath overnight. OBJECTIVE: VITAL SIGNS: Temperature 97.4, pulse 75, blood pressure 131/71, respiratory rate 18, O2 saturation 98% on nasal cannula. GENERAL: The patient is resting comfortably, does not appear to be in any acute distress. CHEST: Lung sounds are diminished more so towards the bases, no obvious rales, rhonchi or wheezing noted. No crepitus noted over palpation of the chest wall or neck. CARDIAC: No notable tachycardia, regular rate and rhythm. ABDOMEN: Soft, non-tender, positive bowel sounds. NEUROLOGIC: He is alert and oriented times three. LABORATORY: White count now normalized to 9,200, hemoglobin 14.4, hematocrit 42.6, platelet count at 191,000. Differential does show continued left shift. Chemistries show sodium 134, potassium 4.5, BUN 25, creatinine 0.86, magnesium normalized at 2.5. Liver functions all within normal limits. MICROBIOLOGY: No additional specimens. RADIOLOGY: Repeat chest x-ray this morning per radiology interpretation shows stable pneumomediastinum and subcutaneous emphysema along the neck. ASSESSMENT: 1. Acute exacerbation of asthma secondary to a nontraumatic pneumomediastinum with patient showing improvement and stable. 2. Acute hypoxic respiratory failure secondary to #1 and exacerbation of asthma showing improvement. 3. Seasonal allergies. 4. Mild back pain secondary to disuse over the last 48 hours, showing some improvement with encouragement of ambulation. 5. History of vaping, supposedly quit 7 to 8 months ago, possibly resulting in #1. PLAN: We will continue with current plan of care at this point. He is on oxygen, Rocephin nebulizer treatments as well as Pulmicort. I would anticipate another 24 hours and repeat chest x-ray in the morning to insure his pneumomediastinum is stable prior to discharging. He does remain on Lovenox for DVT prophylaxis. I will go ahead and start him on a PPI for gastric protection if he is not already on and hopefully be able to discharge in the next 24-48 hours. Until we can discharge him and transition to outpatient management, we will continue to monitor and treat as needed. #[id number] [facility]
[2020-07-29] MEDS: IPRATROPIUM/ALBUTEROL 3 ML VIAL NEB SCH ×4 (08:48→20:15)
[2020-07-29] MEDS: BUDESONIDE NEBS 0.5 MG/2 ML INH NEB SCH ×2 (08:48→20:15)
[2020-07-29] MEDS: predniSONE 20 MG TAB PO SCH (08:55)
[2020-07-29] MEDS: MONTELUKAST 10 MG TAB PO SCH (08:55)
[2020-07-29] MEDS: guaiFENesin ER TAB 600 MG TAB PO SCH ×2 (08:56→21:30)
[2020-07-29] MEDS: cefTRIAXone SODIUM 1 GM in SODIUM CHL 0.9% 50ML MIN-BAG+ 50 ML IVPB SCH (08:56)
[2020-07-29] MEDS ORDERED: SODIUM CHLORIDE 0.65% NASAL SPRAY 45 ML BTTL BNAS PRN (12:23)
[2020-07-29] MEDS: ENOXAPARIN SODIUM 40 MG/0.4 ML SYG SUBCU SCH (21:30)
[2020-07-30] MEDS: ALPRAZolam 0.25 MG TAB PO SCH ×2 (05:39→09:33)
[2020-07-30] MEDS: PANTOPRAZOLE SODIUM IV 40 MG VIAL IV SCH (05:40)
[2020-07-30] MEDS: IPRATROPIUM/ALBUTEROL 3 ML VIAL NEB SCH ×2 (08:18→12:35)
[2020-07-30] MEDS: BUDESONIDE NEBS 0.5 MG/2 ML INH NEB SCH (08:18)
--- NOTE | 2020-07-30 09:08 | PN ---
SUPERVISING PHYSICIAN: Oliver Schmitt MD DATE: 07/29/20 SUBJECTIVE: The patient notes his breahing is a little bit easier today. He is still requiring about 1 liter nasal cannula, oxygen saturation 92%. He has not had any chest pain, no other complaints. He does have a little stuffed up nose and congestion consistent with a rhinovirus. He remains afebrile. OBJECTIVE: VITAL SIGNS: Temperature 97.3, pulse 60, blood pressure 121/74, respiratory rate 18, O2 saturation now 90% on room air. GENERAL: The patient is resting comfortably, does not appear to be in any distress. CHEST: Lung sounds just a little bit diminished towards the bases, no obvious wheezing, a little bit of rhonchi heard on the left compared to the right but this clears up with coughing. No crepitus is felt on palpation of the chest wall. Breath sounds are heard throughout all lung trujillo. CARDIAC: Regular rate and rhythm. ABDOMEN: Soft, non-tender, positive bowel sounds. EXTREMITIES: Without edema. NEUROLOGIC: He is alert and oriented times three. LABORATORY: No additional laboratory studies today. RADIOLOGY: He had a repeat chest x-ray and per radiology interpretation shows improved pneumomediastinum, ASSESSMENT: 1. Acute exacerbation of asthma secondary to a nontraumatic pneumomediastinum with patient showing improvement and stable. 2. Acute hypoxic respiratory failure secondary to #1 and exacerbation of asthma showing improvement. 3. Seasonal allergies. 4. Mild back pain secondary to disuse over the last 48 hours, showing some improvement with encouragement of ambulation. 5. History of vaping, supposedly quit 7 to 8 months ago, possibly resulting in #1. PLAN: We will continue oxygen therapy and ambulation. He is on Rocephin and Pulmicort. His xray is showing improvement. Will keep another 24 hours to insure that he is showing stable improvement and repeat x-ray in the morning. He is just now getting enough oxygen to maintain 100% on room air. If this improves, I anticipate he will discharge tomorrow. Until then, we will continue to monitor and treat as needed. #[id number] [facility]
[2020-07-30] MEDS: predniSONE 20 MG TAB PO SCH (09:33)
[2020-07-30] MEDS: guaiFENesin ER TAB 600 MG TAB PO SCH (09:33)
[2020-07-30] MEDS: MONTELUKAST 10 MG TAB PO SCH (09:33)
[2020-07-30] MEDS: cefTRIAXone SODIUM 1 GM in SODIUM CHL 0.9% 50ML MIN-BAG+ 50 ML IVPB SCH (09:33)
--- NOTE | 2020-07-30 09:49 | CT ---
EXAM DESCRIPTION: Chest w/o Contrast CLINICAL HISTORY: 20 years, Male, pneumomediastinum COMPARISON: Chest x-ray July 29, 2020 TECHNIQUE: Thin-section noncontrast axial CT images are obtained according to our protocol. Reconstructed MPR images are created and reviewed as well. FINDINGS: Lungs: No consolidating pulmonary infiltrate or groundglass infiltrate. No worrisome pulmonary mass or nodule. No pneumothorax. No intrapleural lung cyst or subpleural bleb or bulla. Mediastinum: Lymph nodes are normal in size. Extensive pneumomediastinum around the tracheal bifurcation, extending cephalad in the middle and anterior mediastinum into the lower neck and upper right chest wall. In young patient this is likely related to asthma. Normal vascular contours. Heart size is normal with no pericardial effusion. Chest wall/axilla: No mass or adenopathy. Lower neck/supraclavicular: No mass or adenopathy. Upper abdomen: Unremarkable upper abdominal viscera. Coronal and sagittal reformatted images confirm the findings. The lungs appear generally hyperexpanded. Linear lucency along the right minor fissure thought to be subpleural air dissecting medially as a cause of pneumomediastinum. No peripheral extent to suggest air in the pleural space. Extensive soft tissue emphysema in the neck and upper chest right more than left. No rib fractures to suggest trauma as a cause of pneumomediastinum. Sagittal and coronal images show intact sternum and T-spine. IMPRESSION: Pneumomediastinum with soft tissue emphysema of the neck and upper chest wall. This exam was performed according to our departmental dose-optimization program, which includes automated exposure control, adjustment of the mA and/or kV according to patient size and/or use of iterative reconstruction technique. Total DLP equals 274.90 mGycm. Electronically signed by: Robin Flores MD 07/30/2020 9:48 AM CDT
[2020-07-30 13:40] VITALS: BP 117/68; TEMP 97.5
[2020-07-30 14:23] VITALS: O2SAT 92
--- NOTE | 2020-08-01 08:43 | DS ---
SUPERVISING PHYSICIAN: Tony Schmitt MD ADMISSION DIAGNOSIS: 1. Acute hypoxic respiratory failure secondary to exacerbation of chronic persistent asthma. 2. Seasonal allergies. 3. Mild back pain secondary to disuse over the last 24 to 48 hours. 4. History of vaping. He quit approximately 7 to 8 months ago. DISCHARGE DIAGNOSIS: 1. Acute exacerbation of asthma secondary to a nontraumatic pneumomediastinum with imaging studies stable and the patient no longer requiring supplemental oxygen. 2. Acute hypoxic respiratory failure secondary to #1, resolved. 3. Positive for human rhinovirus/enterovirus contributing to his symptoms related to #1. 4. Seasonal allergies. 5. Mild back pain secondary to disuse over the last 48 hours, showing some improvement with encouragement of ambulation. 6. History of vaping, supposedly quit 7 to 8 months ago, possibly resulting in #1. REASON FOR HOSPITALIZATION: This is a 20 year-old male with a significant history of asthma exacerbation requiring hospitalization that presented to the Emergency Room after 1 day of worsening shortness of breath. He does take Advair and has a rescue inhaler at home. Initially in the Emergency Room he was hypoxic at 83% and was started on 4 liters nasal cannula. He actually had been hospitalized within the last year due to vaping and at that time was almost intubated. He is significantly short of breath at this time and requiring a nonrebreather. His initial vital signs were temperature 97.2 with a heart rate of 96, blood pressure 108/71, respiratory rate 24, O2 saturation 97% on nasal cannula, although he did have 83% on room air and his oxygen has to be titrated to keep his saturations above 92%. His heart rate did also go up to the 130s. Initial lab showed a CBC that is basically unremarkable but his blood gas did show a pO2 of 81, pH was 7.36 and O2 saturation was 96%. At that time he was on oxygen. Chemistries show electrolytes basically within normal limits with the exception of his potassium was slightly low at 3.5. Bilirubin was high at 1.4. Respiratory panel per PCR was negative for everything except human rhino/enterovirus. Chest x-ray showed no acute cardiopulmonary abnormalities. He was given multiple breathing treatments, including DuoNeb in the Emergency Room. He was also given a dose of Solu-Medrol and some magnesium. He received Ipratropium nebulizers. He also complained of some lower back pain but he felt that that was due to him lying in bed for the last 24 to 48 hours. He was admitted to the hospital and placed in observation in stable condition. LABORATORY: White count on discharge was 9,200, hemoglobin 14.4, hematocrit 42.6, platelet count 191,000. Differential did show a left shift. Blood gas analysis on admission showed normal pH 7.36 on 2 liters nasal cannula with O2 saturation 96%, CO2 40, bicarb 22.3, base excess less than 2.5. Chemistries showed just a mildly sodium of 134. Otherwise, electrolytes were within normal limits. BUN 25, creatinine 0.6. Magnesium normal at 2.5, calcium 9.0. Liver functions all within normal limits. MICROBIOLOGY: Respiratory panel was positive for human rhinovirus/enterovirus, negative for COVID and influenza. RADIOLOGY: CT of the neck showed moderate upper pneumomediastinum and subcutaneous emphysema tracking into the supraclavicular and soft tissues of neck. Followup CT of the chest on the date of discharge per radiologic interpretation showed pneumomediastinum with soft tissue emphysema of the neck and upper chest wall. EKG just showed sinus tachycardia , no ectopy. HOSPITAL COURSE: Mr. Romeo was admitted initially for exacerbation of asthma requiring oxygen due to hypoxemia. Further workup did show he had a pneumomediastinum, but he has a longstanding history of asthma. He also does a history of vaping. He was treated with oxygen, breathing treatments and bronchial hygiene, but no IS. He was encouraged to ambulate. He was showing good response to treatment. His imaging studies were showing improvement of pneumomediastinum. He was no longer requiring oxygen at time of discharge. It was felt he had shown good clinical improvement and was stable enough to discharge as an outpatient and followup with his primary care provider. PLAN: Mr. Romeo is to followup in the outpatient setting after discharge with [facility]. He is scheduled to see Mario Ruano on 08/01/20 at 8:50 AM. He will need a followup x-ray to ensure his pneumomediastinum is stable and possibly repeat CT. He was to continue with antibiotics to include cefdinir for a total of 5 day treatment course after discharge as well as a 6 day Medrol Dosepak taper. Review of his medications at discharge and on admission showed that he was taking Advair and albuterol inhalers, but on further interview with the patient, the patient apparently is utilizing his grandmother's medications. This will need to be addressed at his followup to ensure he is on maintenance for his asthma. He will need an asthma action plan in place because I do not think he understands what asthma action plan is. I discuss with him at length the dangers of vaping and that he needs to immediately stop. He was cautioned to avoid any strenuous exercise until his symptoms completely resolved and to return to the Emergency Room should he have any worsening or concerning symptoms. MEDICATIONS AT DISCHARGE: 1. Albuterol 90 mcg inhaled p.r.n. as needed q.4h. 2. Advair 250/50 mg Diskus 2 puffs inhaled b.i.d. 3. Albuterol nebulizers metered dose q.4h. as needed for shortness of breath. 4. Medrol Dosepak 4 mg daily with no refills. 5. Cefdinir 300 mg twice daily for a total of 5 days. CONDITION ON DISCHARGE: Stable and improved. DISPOSITION: The patient was discharged home. #[id number] [facility]
== END 2020-07-30 13:10 | disposition home or self-care (01) | DRG 189 ==
LOC: ER 20:49 → OBSVTOIN 07-26 00:56 → MS 07-26 00:56
PROVIDERS: ADMIT Nurse Practitioner Acute Care; ATTEND Nurse Practitioner Family
PROC: BW2F1ZZ Computerized Tomography (CT Scan) of Neck using Low Osmolar Contrast (ICD-10-PCS; principal; 2020-07-27)
DX: J96.01 Acute respiratory failure with hypoxia (principal); J45.51 Severe persistent asthma with (acute) exacerbation; J30.2 Other seasonal allergic rhinitis; J98.2 Interstitial emphysema; B97.89 Other viral agents as the cause of diseases classified elsewhere; B97.10 Unspecified enterovirus as the cause of diseases classified elsewhere; F41.9 Anxiety disorder, unspecified; Z79.51 Long term (current) use of inhaled steroids; Z87.891 Personal history of nicotine dependence; Z79.899 Other long term (current) drug therapy